=== PATIENT | male | born 1940 ===

== ENCOUNTER 2018-12-09 15:38 | Inpatient (IN) | payer OTHER, MEDICARE ==
[~2018-12-09] VITALS: Ht 177.8 cm; Wt 94.7 kg
[~2018-12-09 15:38] MED LIST: ACET325 PO; ASPI81CH PO; ASPI81EC PO; BENTYL10 MG PO; CHOL10002 PO; CVS DAILY MULT1 EAC1 PO; DIPH50 PO; DOCU100 PO; ENOX40I SQ; FINA5 PO; GABA400 PO; GLUCHON PO; GLUCOSAMINE CH1 EAC3 PO; HYDACE10B PO; HYDACE7.5 PO; HYDMOR4 PO; LORA.5 PO; MULVITMIND PO; NAPR220 PO; NIAC500 PO; OMEG1CAP30 PO; OMEP20ER PO; OXYB5 PO; OXYGEN; PRAZ1 PO; PRAZ2 PO; RANI150 PO; RESTFUL LEGS PO; SERT100 PO; Salmon Oil 1,01 EACH PO; TAMS.4ER PO; TRAM50 PO; TRAZ50 PO
[2018-12-09 15:59] LABS: BASOPHILS ABSOLUTE AUTO 0.04 K/mm3 (0.00-0.23); BASOPHILS PERCENT AUTO 1 % (0-2); EOSINOPHILS ABSOLUTE AUTO 0.06 K/mm3 (0.00-0.68); EOSINOPHILS PERCENT AUTO 1 % (0-6); Hematocrit 45.7 % (37.0-53.0); Hemoglobin 15.3 g/dL (13.5-17.5); IMMATURE GRAN ABSOLUTE AUTO 0.01 K/mm3 (0.00-0.10); IMMATURE GRAN PERCENT AUTO 0 % (0-1); LYMPHOCYTES ABSOLUTE AUTO 1.98 K/mm3 (0.84-5.20); LYMPHOCYTES PERCENT AUTO 29 % (21-46); MONOCYTES ABSOLUTE AUTO 0.56 K/mm3 (0.16-1.47); MONOCYTES PERCENT AUTO 8 % (4-13); Mean Corpuscular HGB 31.2 pg (26.0-34.0); Mean Corpuscular HGB Conc 33.5 g/dL (31.5-36.5); Mean Corpuscular Volume 93 fL (80-100); Mean Platelet Volume 10.7 fL (9.1-12.4); NEUTROPHILS ABSOLUTE AUTO 4.29 K/mm3 (1.96-9.15); NEUTROPHILS PERCENT AUTO 62 % (41-73); Platelet Count 144 K/mm3 (150-400); RDW Coefficient Variation 13.5 % (11.7-14.2); RDW Standard Deviation 46.3 fL (35.1-46.3); White Blood Cell Count 6.94 K/mm3 (4.00-11.30)
[2018-12-09 16:27] LABS: Alanine Aminotransfer (ALT/SGP 18 U/L (12-78); Albumin, Blood 3.7 g/dL (3.4-5.0); Albumin/Globulin Ratio 1.2 (0.8-1.8); Alk Phos 68 U/L (50-136); Anion Gap 7 mmol/L (6-16); Aspartate Aminotrans (AST/SGOT 12 U/L (12-37); Blood Urea Nitrogen 21 mg/dL (8-24); Bun/Creatinine Ratio 21.5 (12.0-20.0); CO2, Blood 25 mmol/L (21-32); Calcium, Blood 9.3 mg/dL (8.5-10.1); Chloride, Blood 109 mmol/L (98-108); Creatinine, Blood 0.98 mg/dL (0.60-1.20); Globulin, Blood 3.1 g/dL (2.2-4.0); Glomerular Filtration Rate >60 (60-); Glucose, Blood 102 mg/dL (70-99); Potassium, Blood 4.2 mmol/L (3.5-5.5); Sodium, Blood 141 mmol/L (136-145); Total Protein, Blood 6.8 g/dL (6.4-8.2); Troponin I <0.015 ng/mL (0.000-0.040)
[2018-12-09 18:28] LABS: International Normalized Ratio 1.03; Prothrombin Time Results 10.9 Sec (9.7-11.5)
[2018-12-09 19:54] LABS: Appearance, Urine Clear (Clear); Bilirubin, Urine Neg (Neg); Blood, Urine 4+ (Neg); Color, Urine Yellow (P-Yellow); Glucose Qualitative, Urine Neg (Neg); Ketones, Urine Neg (Neg); Leukocyte Esterase, Urine 1+ (Neg); Nitrite, Urine Neg (Neg); Protein, Urine 2+ (Neg); Urobilinogen, Urine NORM (Normal)
[2018-12-09 20:02] LABS: Amorphous Light ({null, 0-Heavy}); Bacteria Mod /hpf; Red Blood Cells, Urine 0-2 /hpf (0-2); Squamous Epithelial Cells Rare /hpf (Few)
[2018-12-09] MEDS ORDERED: CEPH500 PO (20:57)
--- NOTE | 2018-12-10 03:56 | NUR ---
SHIFT SUMMARY PT ARRIVED AND WAS ORIENTED TO THE FLOOR. PT CONTINUES TO COMPLAIN OF HEADACHE AND RLS. MEDICATION WAS GIVEN TO PT FOR BOTH TO GOOD EFFECT. PT HAD VSS, BUT STILL COMPLAINS OF BLURRY VISION. THIS NURSE GOT IN REPORT THAT THE PT IS UNABLE TO GET OUT OF BED. NO ATTEMPTS WERE MADE TO AMBULATE PT. NO OTHER COMPLAINTS AT THIS TIME. WILL CONTINUE TO MONITOR.
[2018-12-10 05:29] LABS: Hematocrit 41.5 % (37.0-53.0); Hemoglobin 14.2 g/dL (13.5-17.5); Mean Corpuscular HGB 30.8 pg (26.0-34.0); Mean Corpuscular HGB Conc 34.2 g/dL (31.5-36.5); Mean Platelet Volume 10.9 fL (9.1-12.4); Platelet Count 131 K/mm3 (150-400); RDW Coefficient Variation 13.5 % (11.7-14.2); RDW Standard Deviation 44.4 fL (35.1-46.3); Red Blood Cell Count 4.61 M/mm3 (4.30-5.90)
[2018-12-10 05:30] LABS: Mean Corpuscular Volume 90 fL (80-100)
[2018-12-10 05:51] LABS: Alanine Aminotransfer (ALT/SGP 14 U/L (12-78); Albumin, Blood 3.2 g/dL (3.4-5.0); Albumin/Globulin Ratio 1.1 (0.8-1.8); Alk Phos 61 U/L (50-136); Anion Gap 6 mmol/L (6-16); Aspartate Aminotrans (AST/SGOT 15 U/L (12-37); Blood Urea Nitrogen 17 mg/dL (8-24); Bun/Creatinine Ratio 17.9 (12.0-20.0); CO2, Blood 23 mmol/L (21-32); Calcium, Blood 8.9 mg/dL (8.5-10.1); Chloride, Blood 112 mmol/L (98-108); Creatinine, Blood 0.95 mg/dL (0.60-1.20); Globulin, Blood 2.8 g/dL (2.2-4.0); Glomerular Filtration Rate >60 (60-); Glucose, Blood 97 mg/dL (70-99); Potassium, Blood 3.7 mmol/L (3.5-5.5); Sodium, Blood 141 mmol/L (136-145)
[2018-12-10 08:21] LABS: U Amphetamine Screen Not Detected; U Barbituate Screen Not Detected; U Benzodiazapine Screen DETECTED; U Buprenorphine Screen Not Detected; U Cannabinoids Screen Not Detected; U Cocaine Screen Not Detected; U Methadone Screen Not Detected; U Methamphetamine Screen Not Detected; U Opiates Screen Not Detected; U Oxycodone Screen Not Detected; U Phencyclidine Screen Not Detected; U Propoxyphene Screen Not Detected
[2018-12-10 10:14] LABS: BASOPHILS ABSOLUTE AUTO 0.04 K/mm3 (0.00-0.23); BASOPHILS PERCENT AUTO 1 % (0-2); EOSINOPHILS ABSOLUTE AUTO 0.25 K/mm3 (0.00-0.68); EOSINOPHILS PERCENT AUTO 4 % (0-6); Hemoglobin 15.6 g/dL (13.5-17.5); IMMATURE GRAN ABSOLUTE AUTO 0.01 K/mm3 (0.00-0.10); IMMATURE GRAN PERCENT AUTO 0 % (0-1); LYMPHOCYTES ABSOLUTE AUTO 2.06 K/mm3 (0.84-5.20); LYMPHOCYTES PERCENT AUTO 36 % (21-46); MONOCYTES PERCENT AUTO 9 % (4-13); Mean Corpuscular HGB 30.7 pg (26.0-34.0); Mean Corpuscular HGB Conc 33.9 g/dL (31.5-36.5); Mean Corpuscular Volume 91 fL (80-100); Mean Platelet Volume 10.5 fL (9.1-12.4); NEUTROPHILS ABSOLUTE AUTO 2.95 K/mm3 (1.96-9.15); NEUTROPHILS PERCENT AUTO 51 % (41-73); Platelet Count 122 K/mm3 (150-400); RDW Coefficient Variation 13.6 % (11.7-14.2); RDW Standard Deviation 45.6 fL (35.1-46.3); Red Blood Cell Count 5.08 M/mm3 (4.30-5.90); White Blood Cell Count 5.81 K/mm3 (4.00-11.30)
--- NOTE | 2018-12-10 10:30 | NUR ---
ASSUMPTION OF CARE Pt to ICU 3 from medical floor. Ruben RN, Denis RN, and imaging transporter accompanied pt to room. Dr Kimble at bedside. States plan for emergent head CT and head MRI when pt calm. Pt wearing 2 LPM NC. SpO2 90% or greater. Call placed to pharmacy to request keppra. Keppra to be given before pt taken to CT. ASA suppoistory held until head bleed ruled out. Per med floor RN, pt may have hit head during fall. Pt does not follow commands. Rigid BUE and BUE. Intermittent spontaneous flexion, unclear if voluntary or involuntary. PERRL.
[2018-12-10 10:36] LABS: Anion Gap 5 mmol/L (6-16); Blood Urea Nitrogen 16 mg/dL (8-24); Bun/Creatinine Ratio 15.7 (12.0-20.0); CO2, Blood 26 mmol/L (21-32); Calcium, Blood 9.3 mg/dL (8.5-10.1); Chloride, Blood 109 mmol/L (98-108); Creatinine, Blood 1.02 mg/dL (0.60-1.20); Glomerular Filtration Rate >60 (60-); Glucose, Blood 95 mg/dL (70-99); Magnesium, Blood 2.1 mg/dL (1.6-2.4); Potassium, Blood 4.7 mmol/L (3.5-5.5); Prolactin 7.8 ng/mL (2.5-17.4); Sodium, Blood 140 mmol/L (136-145)
--- NOTE | 2018-12-10 10:43 | NUR ---
THIS AM UPON AM ASSESSMENT PT AWOKE TO VERBAL STIMULI WAS A/O TO PERSON, CITY AND YEAR BUT WAS UNSURE OF WHERE HE WAS AT OR WHY HE WAS HERE. PT DENIED ANY PAIN AT THIS TIME BUT DID REPORT SEEING DOUBLE. PT EXTREMETIES WERE EQUAL AND STRONG. AT APROX 0900 PHYSICAL THERAPY CAME IN TO EVALUATE PT, PER PHYSICAL THERAPIST PT BEGAN SITTING UP AT BEDSIDE AND GOT ONE LEG OVER THE EDGE OF THE BED AND BECAME UNRESPONSIVE. THERAPY AND RAIL CREW MEMBER WAS ABLE TO GET PT BACK INTO LYING POSITION ON BED. THERAPY CALLED ME AND I WENT INTO THE ROOM BUT WAS LYING ON HIS BACK STARING UP AT THE CEILING, PT WAS UNRESPONSIVE AND WOULD NOT BLINK HIS EYES OR SPEAK. RESP E/U AT THIS TIME. BP OF 162/77 PER SPECIAL TESTER NO EVENTS ON MONITOR. PUPILS DILATED AT THIS TIME WITH LEFT SLIGHTLY LARGER BUT BOTH REACTIVE. PT ABLE TO SQUEEZE WITH BOTH HANDS BUT NOT MOVING ARMS OR LEGS AT THIS TIME. DR LAL WAS CALLED AND AT BEDSIDE TO SEE PT. PER DR LAL AT THIS TIME GET A STAT MRI AND EEG. DR LAL CALLED DR HAZEL AT THIS TIME AND SPOKE WITH HIM. I ATTEMPTED TO CALL DAUGHTER AND SON WELL INDUSTRIAL SAFETY AND HEALTH SPECIALIST TO COMPLETE MRI SCREENING FORM. PER MRI THEY CANNOT COMPLETE MRI BASED ON H&P. WHILE ON THE PHONE WITH MRI PT BED ALARM WENT OFF AND I RAN INTO PT'S ROOM AND PT WAS ALREADY ON THE FLOOR ON HIS KNEES WITH HIS HEAD ON THE GROUND. PT WAS ONCE AGAIN UNRESPONSIVE. DR LAL AT BEDSIDE DURING THIS. BLOOD GLUCOSE OF 87. PT WAS LIFTED BACK INTO BED VIA LIFT. NO APPARENT INJURIES NOTED. PER DR LAL GIVE 0.4MG OF NARCAN IV WHICH WAS ADMINISTERED. PT UNRESPONSIVE FOR APROX 10MIN. PUPILS CAME BACK TO A 3 AND EQUAL AND PT ONCE AGAIN STARING AT THE CEILING AND NOT RESPONDING. BP OF 183/77, NO EVENTS ON MONITOR PER PCU. PRN HYDRALAZINE GIVEN PER DR LAL AT THIS TIME. AFTER NARCAN GIVEN PT BEGAN TO WAKE BACK UP AND TRYING TO CRAWL OUT OF BED. DR LAL GAVE ORDERS TO GIVE 2MG IV ATIVAN WHICH WAS ADMINISTERED. PT CONT TO BE AGRESSIVE AND VERY STRONG ATTEMPTING TO GET OUT OF BED. WHEN RELAXED PT NOTED TO BE MAKING MOVEMENT WITH HIS TONGUE, ONE EYE LOOKING FORWARD WHILE THE OTHER EYE DRIFTED OFF TO THE SIDE AND PT ARMS EXTENDED OUT. PER DR LAL AT THIS TIME TRANSFER TO PCU. SHE CALLED AND SPOKE WITH [facility]. STAT CT SCAN ALSO ORDERED, WHILE ATTEMPTING TO GET PT TO CT PT CONT TO BE AGRESSIVE AND NOT FOLLOWING COMMANDS. PER HALI WHO REMAINED AT BEDSIDE GIVE ADDITIONAL 2MG IV ATIVAN FOR A TOTAL OF 4MG. AND TAKE TO ICU FIRST TO GET STABLE PRIOR TO CT. PT TRANSFERED TO ICU 3, BEDISDE REPORT GIVEN TO RN'S. ATTEMPTED TO CALL SON AND DAUGHTER MULTIPLE TIMES FOR UPDATE WITH NO RESPONSE. PT BEGAN CALMING DOWN ONCE ARRIVED TO ICU.
--- NOTE | 2018-12-10 11:30 | NUR ---
UPDATE En route to CT, pt opened eyes and spoke with staff. Spoke in 1-2 word sentences for about one minute. Pt stated "hello". When asked how he was doing, pt stated "better". This RN asked him to state his last name. Pt stated "I'm Ba." No additional speech noted. While on CT table, pt had difficutly remaining still for the procedure. Pt moving head and raising arms straight up in air. Call placed to Dr Kimble. Orders given to administer 2 mg ativan. Upon returning to room, bindery library technical assistant in room setting up for procedure.
--- NOTE | 2018-12-10 12:02 | NUR ---
DR HAZEL Spoke to Jenelle, from Dr Hazel office. Calling to inquire about status of EEG and Head MRI. Notified that head CT has been done. Pt is currently receiving EEG. Head MRI to be done at 1400 per transporter.
--- NOTE | 2018-12-10 14:22 | NUR ---
DAUGHTER AT BEDSIDE EEG complete. Pt resting in bed, asleep. Pt to be taken to MRI at 1430.
--- NOTE | 2018-12-10 16:55 | NUR ---
NEUROLOGY CONSULTATION This RN placed call to Dr Vidal at 15[address] to [address], head MRI, and EEG results were available. Inquired about plan of care. Provider ordered neurology consultation. This RN placed call to Dr Garnica. Notified of consultation. Notified that results for head MRI and head CT were available. Discussed BP and current mentation. Pt occasionally follows directions and answers questions. Pt speaks 1-2 words at a time. Able to state his name and the names of his children. Cannot state correct location or year. Provider states he will be in to see pt around 1900 and 2100. Family updated. Family states plan to leave, but come back to speak with Dr Garnica.
--- NOTE | 2018-12-10 18:31 | NUR ---
SHIFT SUMMARY Pt opens eyes to verbal stimulus. PERRL. Pt occasionally tracks with eyes. Since arrival to unit, pt has not been able to state correct location or year. Pt follows directions when asked to open eye or video game repair technician, but has not followed any additional commands. Pt has not attempted to get OOB. Bed alarm on. Fall gown on patient. NS infusing at 75 mL per hour.
--- NOTE | 2018-12-10 20:32 | NUR ---
INITIAL ASSESSMENT PATIENT RESTING QUIETLY IN BED UPON ENTERING ROOM. PATIENT RESPONDS TO VERBAL STIMULI. PATIENT UNABLE TO TRACK, NYSTAGMUS NOTED. PUPILS 4+ AND REACT BRISKLY TO LIGHT. PATIENT ORIENTED TO SELF, FAMILY, TOWN AND FOLLOWING SOME SIMPLE COMMANDS. PATIENT CONTINUES TO THINK HE IS AT HOME DESPITE BEING REMINDED NUMEROUS TIMES THAT HE IS IN THE HOSPITAL. SPEECH GARBLED. PATIENT WEAK BUT ABLE TO MOVE ALL EXTREMITIES. PATIENT AFEBRILE. PATIENT DENIES PAIN. PATIENT SATTING 90% AND GREATER ON RA. LUNGS CLEAR/ DIMINISHED T/O. SHALLOW BREATHS NOTED. PATIENT IN SB, HR IN THE 50S. SBP 160S TO 170S. PRN HYDRALAZINE AVAILABLE TO BE GIVEN AT SBP OVER 180. PULSES STRONG. PATIENT INCONTINENT. ATTENDS IN PLACE. PATIENT VOIDING YELLOW COLORED URINE. SKIN APPEARS WNL. IVS FLUSHED. NS INFUSING AT 75 MLS/ HOUR. BED ALARM ON, CALL LIGHT IN REACH, BED LOW. DAUGHTER AT BEDSIDE. WILL CONTINUE TO MONITOR PATIENT FREQUENTLY THROUGHOUT SHIFT.
--- NOTE | 2018-12-10 21:40 | NUR ---
DR. HAZEL TO PATIENT'S ROOM AT 2114. PATIENT'S SON AND DAUGHER ALSO IN ROOM. DR. HAZEL UPDATED ON PATIENT. INFORMED THAT PATIENT HAD LEUKOCYTES AND BACTERIA IN URINE, INFORMED THAT SBP 160S T0 170S, THAT PATIENT TAKES ZOLOFT AND VITAMINS AT HOME, THAT PATIENT IS ON SCHEDULED IV KEPPRA.
--- NOTE | 2018-12-10 21:45 | NUR ---
SPOKE TO A-GEOGRAPHICAL HISTORIAN EDISON GUTIERREZ ABOUT PATIENT'S SBP 160S TO 170S AND INFORMED THAT WE HAVE PRN HYDRALAZINE FOR SBP OVER 180. MATT INFORMED THAT DR. HAZEL HAS BEEN IN TO SEE PATIENT AND IS SUSPICIOUS FOR HYPERTENSIVE ENCEPHALOPATHY. ORDER TO CHANGE PRN HYDRALAZINE ORDER TO KEEP SBP UNDER 160.
--- NOTE | 2018-12-11 00:15 | NUR ---
PATIENT SLEEPING SOUNDLY UPON ENTERING ROOM. PATIENT RESPONDS TO VERBAL STIMULI. NYSTAGMUS DECREASED SINCE LAST ASSESSMENT. PATIENT DENIES PAIN. PATIENT AFEBRILE. PATIENT REMAINS SATTING 90% AND GREATER ON RA. PATIENT IN SB TO SR, HR 50S TO 60S. SBP IN THE 150S. NO OTHER ACUTE CHANGES TO NOTE ON AT THIS TIME. WILL CONTINUE TO MONITOR.
--- NOTE | 2018-12-11 03:58 | NUR ---
PATIENT SLEEPING SOUNDLY UPON ENTERING ROOM. PATIENT WAKES TO VERBAL STIMULI. PATIENT MORE ALERT AND ORIENTED THAN AT PREVIOUS ASSESSMENT. PATIENT ALERT AND ORIENTED TO SELF, FAMILY, FOLLOWING DIRECTIONS, TOWN AND THAT HE IS IN THE HOSPITAL. PATIENT DOES NOT KNOW WHY HE IS IN THE HOSPITAL. PATIENT REMINDED. PATIENT NOW TRACKING WITH EYES. PATIENT REMAINS SATTING 90% AND GREATER ON RA. PATIENT IN SB TO SR, HR 50S TO 60S. SBP IN THE 130S. NO OTHER ACUTE CHANGES TO NOTE ON AT THIS TIME. WILL CONTINUE TO MONITOR.
--- NOTE | 2018-12-11 06:42 | NUR ---
SHIFT SUMMARY PATIENT SLEPT MOST OF THE SHIFT. PATIENT NEURO SEEMED TO IMPROVE SLIGHTLY PATIENT NOW AWARE THAT HE IS IN HOSPITAL, NYSTAGMUS HAS DECREASED AND PATIENT IS NOW TRACKING WITH EYES. PATIENT REMAINED CALM AND COOPERATIVE. PATIENT HAD NO COMPLAINTS OF PAIN T/O SHIFT. PATIENT AFEBRILE. PATIENT REMAINED SATTING WELL ON RA. PATIENT REMAINS WEAK BUT ABLE TO MOVE ALL EXTREMITIES. PATIENT REMAINED IN SB TO SR, HR 50S TO 60S. PATIENT HYPERTENSIVE AT BEGINNING OF SHIFT; PATIENT HAS BEEN STABLE SINCE. PATIENT INCONTINENT OF URINE ON AND OFF. SECOND HALF OF SHIFT PATIENT STARTED ASKING FOR URINAL. BLADDER SCAN OF 165 MLS AFTER AM VOID. NO BM THIS SHIFT. KNOT REMAINS TO R SIDE OF HEAD. NS INFUSING AT 75 MLS/ HOUR. DR. HAZEL HERE LAST NIGHT TO SEE PATIENT AND SPEAK WITH PATIENT'S SON AND DAUGHTER. PATIENT HAS NO COMPLAINTS AT THIS TIME. BED LOW, CALL LIGHT IN REACH. REPORT WILL BE GIVEN TO ONCOMING DAY SHIFT GELACIO SHORTLY.
--- NOTE | 2018-12-11 11:06 | NUR ---
0730: Care assumed, pt sleeping, VSS, NS infusing at 75ml/hr. 0830: Pt awake and alert, assessment completed. Pt oriented to self and family, is aware that he lives with daughter, is confused as to place/time/situation but appropriate. OT at bedside for eval. 0905: During OT eval, pt became increasingly drowsy and weak, stopped responding verbally but would track movements and follow some commands. BP elevated, hydralazine administered. Pt resting in bed with eyes closed at this time. 1045: Second dose of hydralazine administered per Dr. Kimble. Pt sat up suddenly in bed, was attempting to get up. This RN attempted to reorient patient without success. Pt awake, making moaning noises, appears to be hallucinating, does not follow commands, is becoming angry and agitated, hr 130's. Pt placed in ajay and 4 point soft restraints after grabbing this RN's neck, and then attempting to choke himself. Ativan administered without results, pt began crying and calling out for his mother, Dr. Kimble notified, haldol administered per orders. 1115: Pt lying in bed with eyes closed, is calm and quiet, no crying at this time. VSS.
--- NOTE | 2018-12-11 14:32 | NUR ---
PT RESTING QUIETLY IN BED, IS DROWSY BUT CAN ANSWER QUESTIONS APPROPRIATELY. RESTRAINTS RELEASED AT THIS TIME. ATTENDS CHANGED, PT REPOSITIONED. PT C/O HEADACHE, TOLERATING SIPS OF WATER. TYLENOL CRUSHED AND ADMINISTERED IN PUDDING WITHOUT DIFFICULTY. DAUGHTER AT BEDSIDE.
--- NOTE | 2018-12-11 15:04 | NUR ---
PT MEDICATED PER ORDERS FOR SBP >160 PER ORDERS, IS CALM AND COOPERATIVE AT THIS TIME, POLITE AND PLEASANT, NO BIZZARE BEHAVIOR OR HALLUCINATIONS NOTED.
--- NOTE | 2018-12-11 16:58 | NUR ---
PT REMAINS CALM AND COOPERATIVE, AWAKE ON AND OFF, NO ADDITIONAL HALLUCINATIONS OR INAPPROPRIATE BEHAVIORS. VSS, PT TOLERATING HYDRALAZINE WELL, ATE PUDDING WITH HELP WITHOUT COUGHING OR CHOKING, REPOSITIONING SELF IN BED, DENIES NEEDS OR C/O.
--- NOTE | 2018-12-11 18:57 | NUR ---
1830: PT AWAKE, ALERT AND APPROPRIATE, COOPERATIVE AND PLEASANT. PT STATES HE FEELS HUNGRY AND WOULD LIKE TO EAT. DINNER GIVEN, PT SITTING UP IN BED FEEDING HIMSELF APPROPRIATELY WITHOUT DIFFICULTY, NO CHOKING OR COUGHING NOTED. NO INAPPROPRIATE BEHAVIORS AFTER HALDOL ADMINISTERED X1 EARLIER TODAY, MENTATION HAS CLEARED CONSIDERABLY THIS EVENING, NO APPARENT SEIZURE ACTIVITY THIS SHIFT. VSS AT THIS TIME, PT VISITING WITH DAUGHTER WHO IS AT BEDSIDE. 1899: PT USED URINAL APPROPRIATELY WITHOUT ASSISTANCE, IS NOW FINISHING DINNER AND CONTINUES TO VISIT WITH DAUGHTER. SPEECH IS A LITTLE SLOWED, BUT ANSWERS ARE APPROPRIATE. VSS, REPORT TO ONCOMING SHIFT.
--- NOTE | 2018-12-12 05:44 | NUR ---
SHIFT SUMMARY: PATIENT PLEASENT AND COOPERATIVE THROUGHOUT THE NIGHT. PATIENT APPEARS TO BE ALERT AND ORIENTED LAST NIGHT. PATIENT HAD FAMILY IN ROOM VISITING AT THE BEGINNING OF THE SHIFT. PATIENT APPEARED TO SLEEP WELL THROUGHOUT THE NIGHT AND APPEARED TO BE ABLE TO TURN SELF IN BED WELL, ASSISTANCE PROVIDED NEEDED. IV FLUIDS RUNNING PER ORDERS. PATIENT CURRENTLY APPEARS TO BE ASLEEP. VITAL SIGNS CHARTED. WILL CONTINUE TO MONITOR PATIENT AND REPORT TO ONCOMING RN.
--- NOTE | 2018-12-12 10:22 | NUR ---
0800: CARE ASSUMED, ASSESSMENT COMPLETED. PT RESTING IN BED WITH NO C/O, IS ALERT, ORIENTED TO SELF AND PLACE, CALM, COOPERATIVE, AND PLEASANT. VSS, PT DENIES PAIN OR C/O. 0900: PT SITTING UP IN BED EATING BREAKFAST, TOLERATED PO MEDICATIONS WITHOUT DIFFICULTY, EX SISTER IN LAW IN TO VISIT PT. 929: PT CRYING, VISITOR REPORTS HE ASKED WHERE HIS EX IS, VISITOR REMINDED PT THAT SHE 4 YEARS AGO, PT INCONSOLEABLE, ATTEMPTING TO GET OOB TO "SEE CECIL," UNABLE TO REORIENT. HALDOL ADMINISTERED PER ORDERS. 1015: PT HAS CALMED SLIGHTLY BUT CONTINUES TO ATTEMPT TO GET OOB, HAS BEEN MEDICATED X2 FOR HTN. NICHOLAS VEST APPLIED AT THIS TIME, WILL CONTINUE TO MONITOR.
--- NOTE | 2018-12-12 13:27 | NUR ---
1115: PT HAS CALMED, REMAINS CONFUSED BUT IS RESTING QUIETLY. ATIVAN ADMINISTERED AT THIS TIME FOR ADJUNCT TO HYDRALAZINE FOR HTN. 1230: ATTENDS AND GOWN CHANGED WHILE PT SITTING AT SIDE OF BED, PT CALM AND COOPERATIVE AT THIS TIME, CONFUSED, NOT FOLLOWING DIRECTIONS WELL. PT ASSISTED TO WC TO SIT UP FOR LUNCH, NICHOLAS REMAINS ON, LEFT SIDED WEAKNESS NOTED. 1330: PT TOLERATED LUNCH WELL, ATE ON HIS OWN. REMAINS CONFUSED BUT COOPERATIVE AND CALM, VSS. PT UP IN WC.
--- NOTE | 2018-12-12 14:51 | NUR ---
DR. LAL AWARE OF PT'S LEFT SIDED WEAKNESS, NO NEW ORDERS REGARDING WEAKNESS AT THIS TIME. PSYCH CONSULT ORDERED PER DR. LAL. PT SITTING UP IN WC TALKING WITH DAUGHTER, VSS.
--- NOTE | 2018-12-12 15:46 | NUR ---
BEDSIDE BATH COMPLETED, PT TOLERATED WELL. P.T. AT BEDSIDE TO WORK WITH PT, ASSISTED TO TRANSFER PT FROM WC TO BED WITH WALKER, GAIT BELT, AND 2 PERSON ASSIST. REPORT GIVEN TO TREVA ORO. PT MEDICATED WITH HYDRALAZINE FOR SBP 176. PT TO ROOM PCU 10 WITH BELONGINGS AND MEDICATION.
--- NOTE | 2018-12-12 16:08 | NUR ---
PT ARRIVAL. PT ARRIVED TO UNIT IN [facility], PT IS COMPLIANT AND COOPERATIVE WITH CARE. PT'S DAUGHTER IS AT THE BEDSIDE. WILL CONTINUE TO MONITOR.
--- NOTE | 2018-12-12 17:44 | NUR ---
SHIFT SUMMARY. NO ACUTE CHANGES NOTED SINCE PT WAS TRANSFERED TO THIS UNIT. PT'S VS STABLE, PT DENIES ANY CHEST PAIN/PRESSURE, N/V OR SOB. TELEPSCH CONSULT WAS PLACED PER MANAGER COMPLETIONS AND IS SCHEDULED FOR 0100. PT HAD INCONT EPISODE OF URINE. PT IS C/O "NECK PAIN THAT GOES AROUND TO MY EYES." PT'S BP AT THIS TIME IS 158/75. PER THE PT'S DAUGHTER THE PT'S ARMS ARE "VERY STIFF" HOWEVER THE PT IS ABLE TO MOVE THEM FREELY AT THIS TIME. PT IS VERY SLEEPY AT THIS TIME. CALL LIGHT IN REACH, BED IS LOCKED AND LOW WILL CONTINUE TO MONITOR UNTIL REPORT IS GIVEN TO ONCOMING RN.
--- NOTE | 2018-12-12 17:51 | NUR ---
PT UPDATE... PT HAS NOT BEEN IN RESTRAINTS SINCE TRANSFER TO THIS UNIT.
[2018-12-13 04:20] LABS: BASOPHILS ABSOLUTE AUTO 0.03 K/mm3 (0.00-0.23); BASOPHILS PERCENT AUTO 1 % (0-2); EOSINOPHILS ABSOLUTE AUTO 0.25 K/mm3 (0.00-0.68); EOSINOPHILS PERCENT AUTO 5 % (0-6); Hematocrit 39.8 % (37.0-53.0); Hemoglobin 13.4 g/dL (13.5-17.5); IMMATURE GRAN PERCENT AUTO 0 % (0-1); LYMPHOCYTES ABSOLUTE AUTO 1.54 K/mm3 (0.84-5.20); LYMPHOCYTES PERCENT AUTO 29 % (21-46); MONOCYTES ABSOLUTE AUTO 0.62 K/mm3 (0.16-1.47); MONOCYTES PERCENT AUTO 12 % (4-13); Mean Corpuscular HGB 30.7 pg (26.0-34.0); Mean Corpuscular HGB Conc 33.7 g/dL (31.5-36.5); Mean Corpuscular Volume 91 fL (80-100); Mean Platelet Volume 10.8 fL (9.1-12.4); NEUTROPHILS ABSOLUTE AUTO 2.87 K/mm3 (1.96-9.15); NEUTROPHILS PERCENT AUTO 54 % (41-73); Platelet Count 122 K/mm3 (150-400); RDW Coefficient Variation 13.7 % (11.7-14.2); RDW Standard Deviation 46.6 fL (35.1-46.3); Red Blood Cell Count 4.36 M/mm3 (4.30-5.90); White Blood Cell Count 5.31 K/mm3 (4.00-11.30)
[2018-12-13 04:33] LABS: Anion Gap 8 mmol/L (6-16); Blood Urea Nitrogen 13 mg/dL (8-24); Bun/Creatinine Ratio 13.1 (12.0-20.0); CO2, Blood 23 mmol/L (21-32); Calcium, Blood 8.7 mg/dL (8.5-10.1); Chloride, Blood 114 mmol/L (98-108); Creatinine, Blood 0.99 mg/dL (0.60-1.20); Glomerular Filtration Rate >60 (60-); Glucose, Blood 107 mg/dL (70-99); Magnesium, Blood 1.8 mg/dL (1.6-2.4); Potassium, Blood 3.9 mmol/L (3.5-5.5); Sodium, Blood 145 mmol/L (136-145)
--- NOTE | 2018-12-13 06:54 | NUR ---
END OF SHIFT SUMMARY PT ALERT AND ORIEMNTED, SLOW TO RESPOND BUT APPROPRIATE. ORIENTED TO ROOM. STATES CORRECT BIRTHDAY, APPEARS TO HAVE CONCRETE THOUGHT PROCESS. VSS THIS SHIFT. BP HAS REMAINED BELOW 150'S POST INITIAL IV APRESOLINE ADMINISTRATION. PT HAS SLEPT FOR MAJORITY OF NIGHT. HAS BEEN COOPERATVE AND ALERT T/O. HAS NOT SHOWN ANY SIGNS OF HIS "EPISODES" OF CONFUSION / AGITATION. TELEPSYCHE UNEVENTFUL DOCTOR COULD NOT ACCESS PATIENTS CHARTS, WILL GET BACK TO US WITH MORE INFORMATION. PT HAS HAD INCONTINENT VOIDS. BLADDER SCAN SHOWED 340MLS, PT VOIDED 250MLS RIGHT AFTERWARDS, THIS WAS WHEN PATIENT WAS LYING FLAT. WILL CONTINUE TO MONITOR PT.
--- NOTE | 2018-12-13 07:33 | NUR ---
ASSUMED CARE: PT RESTING QUIETLY. YELLOW GOWN NOTED. STATES HIS HEARING AID BATTERIES ARE . CALL TO PT'S DAUGHTER TO ASK HER TO BRING MORE. NO FURTHER NEEDS OR DISTRESS NOTED AT THIS TIME.
--- NOTE | 2018-12-13 17:23 | NUR ---
SHIFT SUMMARY: PT ATTEMPTED TO GET OUT OF BED ON HIS OWN ONCE. HE WAS PLEASANT AND REDIRECTABLE. GOT HIM INTO A CHAIR WITH ONE ASSIST WITH WALKER. ALARMS AND YELLOW GOWN IN PLACE FOR SAFETY. FAMILY AT BEDSIDE AT THIS TIME. NO FURTHER NEEDS OR CONCERNS NOTED.
--- NOTE | 2018-12-14 04:39 | NUR ---
END OF SHIFT SUMAMRY PT AXO SPEAKING APPROPRIATELY WITH STAFF. HAS BEEN VERY COOPERATIVE WITH STAFF AND PLEASANT. PT HAS NOT HAD ANY APPARENT MOMENTS OF CONFUSION, AGITATION, OR AGGRESSION. PT HAS NOT APPEARED TO HAVE HAD ONE OF HIS "EPISODES" WITH IRREGULAR FLEXION OF EXTREMITIES AND CONFUSION. VSS, HAS REQUIRED PRN APRESOLINE. PT HAS BEEN RESTING FOR MOST OF NIGHT. UNLABORED AND EQUAL BREATHING / CHEST RISE. PT HAS NOT VOICED ANY CONCERNS TO THIS NURSE REGARDING PAIN OR DISCOMFORT. HAS BEEN CONTINENT OF VOIDS THIS SHIFT AND HAS BEEN USING URINAL. CALL LIGHT WITHIN REACH, WILL CONTINUE TO MONITOR PT UNTIL SHIFT CHANGE.
--- NOTE | 2018-12-14 05:53 | NUR ---
0520 PT APPEARS TO BE HAVING "EPISODE" DESCRIBED BY PT FAMILY. BUT, THIS PRESENTS WITHOUT ABNORMAL EXTREMITY OF FLEXION. WHEN THIS NURSE WENT INTO ROOM TO OBTAIN VITALS, PT NOT RESPONDING VERBALLY. FIXED GAZE. VITALS OBTAINED. STABLE, BUT BP RAISED. IV HYDRALZINE GIVEN PER EMAR. PT IS ABLE TO SLIGHTLY SQUEEZE HANDS WHEN VERBALLY PROMPTED TO. SPO2 MAINTAINING >94% RA. IV ATIVAN GIVEN ORDERED FPR SEIZURES IN EMAR. THIS APPEARS TO BE AN ABSENCE SEIZURE COVERED IN PROVIDER NOTES. THIS HAS ALL BEEN DISCUSSED WITH CHARGE NURSE. IF PATIENT STATE WORSENS, WILL CONTACT PROVIDER. THIS IS NOT A NEW CONDITION, WE WILL CONTINUE TO MONITOR.
--- NOTE | 2018-12-14 07:30 | NUR ---
ASSUMED CARE PT POST ICTAL. SEIZURE LASTING 622 TO 704. ICU NURSE IN THE ROOM RECORDING FIRST BEATER. SEE FIRST BEATER NOTES. VITAL SIGNS STABLE AT THIS TIME. CEREBYX INFUSING PER ORDERS. WILL CONTINUE TO MONITOR CLOSELY
--- NOTE | 2018-12-14 07:54 | NUR ---
OPERATIONS FORESTER POST 519 NOTE, PATIENT WAS RESTING. THIS NURSE WALKED IN TO ROOM AND PATIENT NOTED TO BE TRYING TO GET OUT OF BED. PT NOT RESPONDING VERBALLY, SAME BLANK STARE NOTED. PT LAID BACK DOWN IN BED. 622, PT BEGINS TO DISPLAY TONIC CLONIC MOVEMENTS. HANDS AND UPPER BODY SHAKING BUT LEGS NOTED TO BE EXTENDED. CHARGE NURSE CALLED TO ROOM, 1MG IV ATIVAN GIVEN. NO EFFECT. SEIZURE LIKE ACTIVITY CONTINUES, OPERATIONS FORESTER CALLED. ICU NURSE TO ROOM. BP NOTE TO HAVE RISEN TO [address] HAZEL HAD MENTIONED EARLIER IN THE PATIENTS CARE THAT HE BELIEVED THESE EVENTS WERE DUE TO HTN. 5MG LABETOLOL GIVEN BY ICU NURSE. SEIZURE LIKE ACTIVITY CONTINUES. PT CONTINUED TO MAINTAIN SP02<93% RA. NC 2L PLACED PROPHYLACTICALLY. INTERESTINGLY, PT BATS HANDS AWAY. WHEN PT'S CHEST RUBBED, HE LOOKED AT NURSES. DR LEAL ON PHONE, ORDERS PLACED. IV KEPPRA INFUSED @0643. ACTIVITY CONTINUES. 704 2MG IV ATIVAN GIVEN BY CHARGE NURSE AKUA. ACTIVITY SLOWLY FADES AWAY. THIS EVENT LASTED FROM 622 TO 704. CEREBYX STARTED @0733, DR AWARE OF HIGH DOSAGE RATE. PT IS NOW CURRENTLY RESTING. BP HAS COME DOEN TO [address] LAL HAS BEEN IN ROOM NOW AND UPDATED. DURING EVENT, THIS RN, AKUA MCCORMICK, KATIE DELUNA, RESPIRATORY CARE, AND OTHER PCU NURSES IN ROOM T/O THIS EVENT. FAMILY UPDATED ON THIS EVENT. WILL COME TO SEE PT WHEN AVAILABLE. ONCOMING NURSE PRESENT IN ROOM DURING MUCH OF THIS EVENT. NURSE GIVEN REPORT. STILL MAINTAINING SPO2 >93%.
--- NOTE | 2018-12-14 18:36 | NUR ---
SHIFT SUMMARY PT OPENS EYES WITH VERBAL STIMULI. PT INTERMITTENTLY ANSWERES QUESTIONS IN SHORT SENTENCES OR JUST YES OR NO. VITAL SIGNS STABLE. BP ELEVATED THIS AFTERNOON THAT WAS IMPROVED WITH MEDICATION ADMINISTRATION. HR HAS BEEN SINUS BENJAMIN. DAUGHTER AT BEDSIDE MOST OF SHIFT. WILL CONTINUE TO MONITOR AND REPORT TO ONCOMING RN.
--- NOTE | 2018-12-15 05:26 | NUR ---
SHIFT SUMMARY PT DROWSY, UNABLE TO KEEP EYES OPEN UPON CARE ASSUMPTION, ANSWERING SOME Q'S ONLY. PT MORE ALERT FURTHER INTO SHIFT, ORIENTED TO SELF AND FAMILY ONLY. PT DENIES ORIENTATION TO TIME, LOCATION, AND EVENT, PT REORIENTED TO SUCH THINGS. NO SEIZURELIKE ACTIVITY THIS SHIFT. PT PLEASANT AND COOPERATIVE. LUNG SOUNDS CLEAR, SPO2 > 92% ON RA. MONITOR SHOWS SB/NSR, HR 50-75. BP MEDICATED PER EMAR X1 THIS SHIFT. Q2H REPOSITIONING BY 2 STAFF MEMBERS W/ MODERATE ASSIST REQUIRED UPON CARE ASSUMPION NOW REQUIRING ONLY 1 PERSON ASSIST PT IS MORE ALERT AND ABLE TO HELP REPOSTION. PT INCONTINENT, WEARING ATTENDS, ONE EPISODE OF CONTINENCE W/ PT REQUESTING/ASSISTED W/ URINAL. BED ALARM REMAINS ON. SIDE RAILS UP W/ SEIZURE PADS X2. WILL CONTINUE TO MONITOR AND PROVIDE CARE UNTIL REPORT OFF TO DAY SHIFT RN.
--- NOTE | 2018-12-15 16:18 | NUR ---
SHIFT SUMMARY PT ALTERNATES BETWEEN A&OX2 TO SELF AND FAMILY TO EXTREMELY SOMNOLENT. HTN TX'D WITH HYDRALAZINE X1, IVF @ 75 MLS/HR, IV KEPPRA PER EMAR. TX'D 1X FOR SEIZURE-LIKE/PTSD ACTIVITY WITH 1ML ATIVAN. BEDREST W/BED ALARM, PT DOES TRY TO GET UP AT TIMES. TELE NSR @ 62. INCONTINENT/ATTENDS ON. PT ASSISTS WITH REPOSITIONING AND ATTENDS CHANGES. MARTIN PO, REQ MEAL ASSIST AND ENCOURAGEMEMT. ORCHARD PRUNER VISITED WITH PT TODAY AND PT REP TO DAUGHTER SINGH HE WOULD LIKE TO VISIT WITH HER AGAIN. DAUGHTER AT BEDSIDE. WCTM & TX PER EMAR UNTIL REPORT GIVEN TO ONCOMING VERONIKA TILLEY.
--- NOTE | 2018-12-15 19:01 | NUR ---
Asked by nursing to meet with Mr. Vaughan (Byron) as he appeared to be having flashbacks from the [place] war. I sat beside him, held his hand, and asked him to tell me about his memories. He was tearful throughout and would often shift from different times in his life. He spoke about the loved ones he had lost and expresed survivor's guilt. He appeared to appreciaite being heard and affirmed. He was much more calm after gentle staff genetic counselor and story facilitation. Per family request, I will continue to see Byron as schedule permits.
--- NOTE | 2018-12-15 21:27 | NUR ---
ASSUMED CARE ASSUMED CARE OF PT APPROX. 1900. PT A&O TO SELF, FAMILY AND PLACE. PT ABLE TO FOLLOW DIRECTIONS. ASSESSMENT COMPLETED. VITAL SIGNS STABLE. PT STATES HE IS FEELING ALOT BETTER THAN HE PREVIOUSLY WAS. PT FAMILY AT BEDSIDE AT START OF SHIFT. PT AWAKE AND ABLE TO HOLD CONVERSATION. PT ABLE TO ANSWER QUESTIONS APPROPRIATELY. PT ABLE TO AWAKE AND SWALLOW EVENING MEDICATIONS WITH WATER W/O ANY TROUBLES. PT CURRENTLY IN BED RESTING QUEITLY BUT REMAINS ARROUSABLE. BED IN LOW POSITION, BED ALARM ON, CALL LIGHT IN REACH AND PT DENIES ANY NEEDS AT THIS TIME. WILL CONINTUE TO MONITOR.
--- NOTE | 2018-12-16 05:45 | NUR ---
SHIFT SUMMARY PT PLEASANT AND COOPERATIVE. PT WAS ABLE TO REST FOR MOST OF SHIFT. WHEN PT AWOKEN BY STAFF PT MENTATION WAS NOTED TO HAVE NO CHANGES SINCE START OF SHIFT. PT RECOGNIZED STAFF AND REMAINED CALM ALL SHIFT. PT ATTEMPT TO USE URINAL INTERMITENTLY, OTHER TIMES PT WAS INCONTINENT OF URINE. PT ABLE TO MOVE HIMSELF AROUND IN BED. PT WOULD ROLL HIMSELF FROM SIDE TO SIDE WHILE SLEEPING. BED IN LOW POSITION, BED ALARM ON, CALL LIGHT IN REACH AND PT DENIES ANY NEEDS AT THIS TIME. WILL CONTINUE TO MONITOR UNTIL HANDOFF TO DAYSHIFT RN.
--- NOTE | 2018-12-16 07:19 | NUR ---
NURSING PCU DAYSHIFT: Assumed care of pt at approx 0700. Alert, oriented to self, location, year, following commands, unable to remember month/day. Very pleasant, cooperative w/care. General weakness noted though able to reposition independently. Skin is fairly intact w/no breakdown noted, scattered bruising on UE's. Tele in place, SB, no c/o CP/pressure, SBP 130's prior to a.m. meds, no noted edema. L/S cta t/o, O2 sat mid to upper 90's on RA, denies dyspnea, no noted cough. Abd SNT, BT+, attempts to use urinal for voiding though experiences incontinence. PIV x1, PG present in RUE w/NS infusing at 75cc/hr. Pt denies any current needs or questions regarding plan of care. Call light in reach, bed alarm set for safety purposes. Awaiting rounding from PMD, cont to monitor for any changes.
--- NOTE | 2018-12-16 10:59 | NUR ---
NURSING PCU TRANSFER SUMMARY: PMD at bedside this a.m. Pt became tearful with acknowledgement of SI. Pt reassured by PMD and plan discussed, new d/o received. SI precautions initiated, room assessment completed, nursing welfare supervisor notified, 1:1 placed in room d/t monitor room not available. Pt changed to medical status w/o tele, room assignment received, awaiting report to accepting RN. After discussion w/PMD at bedside, pt has been sitting in room w/hands interlaced over chest, not verbally responding to staff or allowing direction. Sitter remains at bedside, cont to monitor until transfer is completed.
--- NOTE | 2018-12-16 11:41 | NUR ---
REPORT RECEIVED FROM ELEAZAR BOWDEN. AWAITING PT ARRIVAL TO ROOM AT THIS TIME
--- NOTE | 2018-12-16 11:49 | NUR ---
NURSE CALLED ACADEMIC INTERN, VIDEO MONITORING TURNED ON AT THIS TIME.
--- NOTE | 2018-12-16 12:24 | NUR ---
PT ARRIVED TO ROOM, WAS TRANSFERRED TO BED VIA SLIDE WITH 4 STAFF PRESENT. POWERGLIDE TUBING BROKE DURING TRANSFER, PT BLEEDING, NURSE PULLED CATHETER AND APPLIED DRESSING. WHEN NURSE SPOKE TO PT, PT LOOKED INTO NURSE'S EYES AND DEMONSTRATED UNDERSTANDING THOUGH PT REFUSED TO MOVE. PT REFUSED TO HELP TRANSFER OR SQUEEZE NURSE'S FINGERS. NURSE DISCUSSED PT CONDITION WITH KEYLA HOOD, TREVA WHO SAT WITH PT TO ASSESS WITH PRIMARY NURSE. PT REFUSED TO ANSWER OR MOVE STILL. PT'S DAUGHTER SINGH CALLED AT 1228 AND STATES THAT THIS BEHAVIOR IS COMMON FOR HER FATHER WHEN HE HAS ANXIETY. SHE STATED THAT HER FATHER ENJOYS JAISON LEACH AND THIS MIGHT HELP HIM. JAISON NOTIFIED AT THIS TIME. DR GUTIERREZ IN ROOM AT 1238. UPDATED ON TRANSFER
--- NOTE | 2018-12-16 17:51 | NUR ---
SHIFT SUMMARY PT ARRIVED TO ROOM AT 1203 VIA GURNEY. SEE ARRIVAL AND ASSESSMENT NOTE. AT 1300 NURSE RECEIVED CALL FROM [employer] WHO STATED PT WAS ATTEMPTING OOB. PT REACHED FOR NURSE AND GRABBED HER HAND. NURSE PULLED HER HAND AWAY THEN PT REACHED TO GRAB NURSE'S FACE. NURSE MOVED AWAY TO AVOID GETTING HURT. NURSE CALLED IN INSTRUCTIONAL SERVICES SPECIALIST TO HELP KEEP PT FROM GETTING OOB. HIS FACE WAS SHAKING AND HE WAS NOT SPEAKING. NURSE CALLED IN WES ANAYA RN AND THEY CALLED SECURITY. NURSE ATTEMPTED TO CALL DR GARSIA AT 1303. DR GUTIERREZ WAS STILL ON THE UNIT AND GAVE VERBAL ORDERS FOR IM ZYPREXA PT WAS NOT ABLE TO SWALLOW ORAL FORM AT THAT TIME. ZYPREXA ADMINISTERED AT 1320. PT WAS SPEAKING ANOTHER LANGUAGE AT THAT TIME. PT CALMED AND FELL ASLEEP. AT 1420 NURSE REASSESSED PT WHO WAS COMPLAINING OF ABURTO. NURSE MEDICATED PT PER EMAR. PT AT THAT TIME WAS AXO TO SELF, YEAR AND WAS ANSWERING QUESTIONS APPROPRIATELY. PT DID NOT REMEMBER TRNASFERRING TO ROOM OR INCIDENT WITH NURSE AND SECURITY. PT'S DAUGHTER IN ROOM AT ABOUT 1430 WITH MANY QUESTIONS, DESPITE NURSE DISCUSSING THOSE QUESTIONS WITH HER PREVIOUSLY ON THE PHONE. SEE NOTE. SHE ALSO STATED THAT HER FATHER SAID THAT THE "DOCTOR CAME IN AND DIDNT BOTHER TO REMOVE HIS HAT!" THE NURSE EDUCATED THE DAUGHTER THAT NONE OF THE DOCTORS WERE WEARING HATS TODAY. PT SITTING UP IN BED EATING DINNER AT THIS TIME. BED IN LOW POSITION, CALL LIGHT ON THE WALL. VIDEO MONITORING IN PROGRESS.
--- NOTE | 2018-12-16 20:10 | NUR ---
SI precautions called Giovanni at 1951 to assure remote camera monitoring and Q 15 min suicide precaution checks are being documented.
--- NOTE | 2018-12-16 20:16 | NUR ---
PT was transferred from PCU today was admitted 12/10/18 with AMS post status epilepicus and has suicide precautions and seizure precautionns in place. Per day RN MAVIS Sousa was in to see PT today. DR Romeo Coughlin saw PT and recommends InPT Psych [place] on DC. PT says he has scheduled [facility] scheduled this week. English war with DX of PTSD. Resting quietly line of sight per remote camera monitoring. Continue to assess.
--- NOTE | 2018-12-17 06:16 | NUR ---
PT CONTINUES ON SUICIDE PRECAUTIONS. QUIET AND COOPERATIVE WITHOUT ANY ATTEMPTS AT SELF HARM. CONTINUES ON REMOTE CAMERA MONITORING WITH LINE OF SIGHT AND Q 15 MIN DOC BY CREDIT RISK ANALYTICS MANAGER. FLAT AFFECT, RESPONDS TO VERBAL STIMULI AND OBEYS COMMANDS. TAKES SMALL AMTS OF WATER ONLY THIS 12 HOUR SHIFT. CONTINUES ON NS AT 75 ML HOUR. USES URINAL AND MOSTLY CONTINENT, THIS AM DRIBBLED THEN INCONTINENT OF URINE. pt AGREES HE SAID HE WANTED TO . DENIES HE HAD A PLAN. PT VERBALIZED HE WAS SUPPOSED TO CHECK INTO THE [facility]. NO VISTORS OR PHONE CALLS FROM FAMILY OR FRIENDS OBSERVED THIS SHIFT.
--- NOTE | 2018-12-17 07:33 | NUR ---
VERIFIED VIDEO MONITORING CALLED SCU MONITOR AGUILAR TO VERIFY MONITORING
--- NOTE | 2018-12-17 12:17 | NUR ---
PT STATUS PT TRIED TO EXIT BED, DEVELOPED SHAKING. BLADDER CHANGER INFORMED ME THAT HE HAD DONE THIS YESTERDAY AND THEN HIS BEHAVIOR ESCALATED UNTIL SECURITY WAS CALLED. I CALLED THE PT'S DAUGHTER, TG. SHE STATED IT WOULD BE A WHILE BEFORE SHE COULD GET HERE. I CALLED THE CAFE AIDE. PT WAS ABLE TO SOOTHE, BUT THEN IMMEDIATELY EXPERIENCED ANOTHER EPISODE. I CALLED HOSPITALIST. HE STATED THAT THE ZYPREXA WILL DISSOLVE IF I COULD MANAGE TO GET IT IN THE PT'S CHEEK. I WAS SUCCESSFUL.
--- NOTE | 2018-12-17 12:18 | NUR ---
Upon receiving a request for spiritual care services for patient, I entered patient's room. Patient's RN Margoth tells me that patient has PTSD and is having an episode at present. She explains that yesterday security had to be called. I provide a calming presence and prayer for patient and patient eventually rests and is peaceful. I will continue to remain available to patient and family.
--- NOTE | 2018-12-17 16:11 | NUR ---
SHIFT SUMMARY PT HAD A FEW EPISODES TODAY WITH ANXIETY. I AND THE SENIOR GOVERNMENT PROGRAM ANALYST ATTEMPTED TO COMFORT HIM, BUT THE EPISODES CONTINUED. I WAS ABLE TO ADMINISTER SUBLINGUAL ZYPREXA PRN. THE DAUGHTER ARRIVED, SHE EXPRESSED CONCERN OVER WETHER THE SYMPTOMS MAY BE RELATED TO A VITAMIN B12 DEFICIENCY. I WILL DEFER THIS QUERY TO THE HOSPITALIST. PT HAS BEEN CALM SO FAR SINCE THE ZYPREXA. AT TIMES HE IS RESPONSIVE TO QUESTIONING, AT OTHER TIMES HE IS NOT. WHEN NOT AGITATED HE REQUESTS THE URINAL AND FLUIDS TO DRINK. I NOTICE HE HAS NOT HAD A RECORDED BM SINCE ADMISSION.
--- NOTE | 2018-12-17 16:29 | NUR ---
SHIFT SUMMARY ADDENDUM Q 4 SUICIDE ENVIRONMENTAL SAFETY ASSESSMENTS ORDERED. SHEMAR KNAPP TODAY. HOPING FOR PLACEMENT TO AN INPATIENT PSYCH FACILTY, [place].
--- NOTE | 2018-12-17 17:54 | NUR ---
PT FELT URGE FOR BM UNABLE TO PLACE HIM ON THE BSC. TRIED A BEDPAN BUT PT WAS UNABLE TO PRODUCE A BM. I BROUGHT A NURSING RECIPE CALLED "[facility]" TO ASSIST HIM. HOWEVER, PT WAS BACK TO BEING UNRESPONSIVE. THESE EPISODES SEEM TRIGGERED BY ANXIETY TO MY EYES. HE WAS UPSET THAT WE COULD NOT PLACE HIM ON THE BSC, BUT HE WAS UNWILLING/UNABLE TO ASSIST US WITH TRANSFER, SO IT WAS UNSAFE. IMMEDIATELY AFTER THAT, HE WENT UNRESPONSIVE.
--- NOTE | 2018-12-17 19:54 | NUR ---
PT had episode on day shift where he became limp and staring tremulous and zyprexa was taken per oral mucosa and he eventually became responsive again. DTR Merry at bedside at shift change and tearful. PT was staring and making utterances in Lithuanian. DTR says she has never previously seen Dad like that and he doesn't speak Lithuanian. He has poor eye contact tense rigid and not interecting for extended period. Offered xyprexa and DTR declined. PT finally relaxed and resting quietly. In Psych tx recommended by DR Coughlin on DC. [facility] Remote camera monitering verified 1930 with Giovanni.
--- NOTE | 2018-12-18 01:48 | NUR ---
DR BUTCHER UPDATED ON need for bowel care for PT. Bowel care meds ordered. Assisted PT with oral intake. Will offer bowel care on next rounds.
--- NOTE | 2018-12-18 07:09 | NUR ---
CALLED SCU MONITOR VERIFIED VIDEO MONITORING IS ACTIVE WITH MONITOR AARON
--- NOTE | 2018-12-18 07:15 | NUR ---
PT had several hours of unusual neuro activity where he was not making eye contact, and would not swallow or move extremitities. His Daughter was at bedside and PT was not responding to her except to make utterances in Nepali which she says he doesn't speak. PT then responded to submucosal zyprexa. Medicated with tylenol and requip for hs RLS. PT able to verbalize and swallow once episode resolved. Took multiple ensures and fed self chocholate pudding. Incontinet x 1 of urine then used urinal several times.
--- NOTE | 2018-12-18 10:50 | NUR ---
PT STATUS RIBBON WINDER CALLED FOR HELP. THE BED ALARM SOUNDED. I AND OTHER NURSING STAFF CAME INTO THE ROOM TO FIND HER HOLDING THE PT UP HE WAS SLUMPED OVER THE COMPUTER DESK. SHE STATED THAT HE GOT OUT OF BED & WALKED TOWARDS THE BATHROOM AND SHE CAUGHT HIM HE SLUMPED OVER THE DESK. HE DID NOT FALL. WE PUT HIM BACK INTO BED, RESET THE ALARM. VIDEO MONITOR DID NOT CALL WE RESPONDED IMMEDIATELY. HE APPEARS TO BE IN ANOTHER UNRESPONSIVE STATE. HE EXPERIENCES THESE FREQUENTLY.
--- NOTE | 2018-12-18 17:10 | NUR ---
SHIFT SUMMARY MD PHYSICIAN DR. WATTS CALLED TODAY FOR AN UPDATE ON THE PT, REQUESTED TO SPEAK TO DR. GARSIA. PT HAS EXPERIENCED SEVERAL UNRESPONSIVE/SHAKY EPISODES THROUGHOUT SHIFT. PT HAS EXPERIENCED AUDITORY AND VISUAL HALLUCINATIONS, SPEAKING WHAT HE MAY BELIEVE TO BE FRENCH. WHEN NOT EXPERIENCING THESE EPISODES, HE IS COOPERATIVE AND CAN FEED HIMSELF - RESPONDING TO STAFF. PT DID HAVE A BM TODAY.
--- NOTE | 2018-12-19 06:42 | NUR ---
SHIFT SUMMARY PT IS AN 78 Y/O MALE, ADMITTED FOR ACUTE ENCEPHALOPATHY. HE HAS BEEN HAVING EPISODES OF PSEUDOSEIZURES, BLANK STARING. PT HAD TWO MAJOR EPISODES DURING THE NIGHT, AT APPROXIMATELY 1930 AND 0530, BOTH TIMES AFTER HE HAD GOTTEN UP TO USE THE BSC, AND WAS MEDICATED WITH PRN ZYPREXA. PT'S BP WAS ELEVATED DURING HIS EPISODES IN THE 170S SYSTOLICALLY, THOUGH IT CAME DOWN TO THE 140S SYSTOLICALLY AFTER HIS EPISODE FINISHED. ALL OTHER VITALS STABLE. PT SLEPT WELL BETWEEN EPISODES THROUGH THE NIGHT. NO OTHER ACUTE CHANGES IN PT CONDITION NOTED DURING THE NIGHT. WILL CONTINUE TO MONITOR AND TREAT PER EMAR UNTIL HAND OFF TO DAY SHIFT RN.
--- NOTE | 2018-12-19 12:59 | NUR ---
multicultural internship report while assisting pt with urinal he go into seizure type activity, blank stare, limp extremities. dr abdullahi notified return to room to witness. state ptsd related. pt @ this time rigid, gripping handrails, appears fearful, when attempt to communicate with him he speaks in language extremely anxious. given zyprexazydis 5mg/dr abdullahi. attempt to calm/reassure pt & son came in to sit with him.
--- NOTE | 2018-12-19 16:58 | NUR ---
SUMMARY THIS AM PT WAS SITTING UP IN BED, A/O X1 HOWEVER ANSWERING BASIC QUESTIONS APPROP, CALM/PLEASANT AFFECT, ALTHOUGH SOMEWHAT FLAT/WITHDRAWN. APPROX 1200 HOSPITAL SECURITY OFFICER IN TO ASSIST W URINAL, PT HAD PSUEDO SEIZURE SAQIB BECOME LIMP, STARING. WHEN HE AROUSED HE BECAME EXTREMELY AGITATED, RIGID, FEARFUL. SPEAKING IN NEPALI. HX PTSD NEPALI WAR PER FAMILY. STATE THIS HAS BEEN ONGOING. PRN ZYPREXA ZYDIS GIVEN. PT WAS ABLE TO CALM SOMEWHAT @ THAT TIME. DR GARSIA CAME BACK TO ROOM TO ADDRESS FAMILY QUESTIONS, PT AGAIN BECOME EXTREMELY AGITATED, FEARFUL. THREATENING STAFF ATTEMPTING OOB. DR GARSIA ORDER ZYPREXA 5MG IM. CAP LINING MACHINE OPERATOR SIT W PT ABLE TO CALM HIM SOMEWHAT. PT STATE R HIP PAIN ORDER ONE TIME ROXANOL 5MG. PT CONTINUES ON SUICIDE PRECAUTIONS, THIS AM WHILE CALM HE STATED NO SI.
--- NOTE | 2018-12-20 06:21 | NUR ---
SHIFT SUMMARY NO ACUTE CHANGES TO REPORT OVERNIGHT. PT HAS SLEPT MOST OF THE NIGHT. PT HAS HAD NO PSEUDO SEIZURES FOR MOST OF THE NIGHT UNTIL THIS AM AROUND 0620. HE GOT UP STATING HE HAD TO USE THE BATHROOM AND WENT INTO A PSEUDO SEIZURE, HIS BODY WENT LIMP AND HE WOULD NOT RESPOND TO STAFF. PT CAME OUT OF IT AND STARTED RESPONDING TO STAFF AFTER ABOUT 10 MINUTES. NO ACUTE CHANGES OVERNIGHT. ASSESSMENT REMAINS AT BASELINE. VITALS STABLE. SI PRECAUTIONS IN PLACE. WILL CONTINUE TO MONITOR AND REPORT TO ONCOMING RN.
--- NOTE | 2018-12-20 10:47 | NUR ---
UPDATE FAXED TO SHORTY AT [facility] AFTER RECEIVING A PHONE CALL ABOUT NEED FOR CONINUATION OF NEED FOR BED
--- NOTE | 2018-12-20 16:34 | NUR ---
SUMMARY THIS AM PT VERY LETHARGIC, APPEARS WEAK/FATIGUED. MINIMAL VERBAL INTERACTION. HE REQUIRED ASSIST TO EAT. WHILE FEEDING HIM BF HE STARTED TO BECOME AGITATED, RIGID, CLENCHING. GAVE ZYPREXA ZYDIS 5MG WITH AM MEDS. HE CONTINUED LETHARGIC THRU THE MORNING. SON & DAUGHTER CAME IN TO VISIT HOWEVER DID NOT STAY LONG, PT AGAIN BECAME AGITIATED WHILE THEY WERE ATTEMPTING TO VISIT PROMPTING THEM TO LEAVE. APPROX 1400 PT BECOME EXTREMELY AGITATED, ATTEMPTING TO CRAWL OUT OF BED HEAD FIRST, BRANCHER CONTE IN TO ASSIST, PT GRABBING & CLENCHING, REQUIRE 3 STAFF TO KEEP HIM FROM FALLING OUT OF BED. HE STATE REPEATEDLY "I GOTTA GO, I WANT TO ". NURSE SUPVR UP TO ASSIST WITH REASSURANCE, THERAPUETIC COMMUNICATION, PRAYER WITH PT. ZYPREXA 5MG IM GIVEN. PT HAS BEEN ABLE TO CALM. LATE AFTERNOON WAKE UP PLEASANT, INTERACTING, A/O X2, STATE WOKE UP FROM [place], STATE "GLAD TO MEET YOU AGAIN". STATE VAGUE MEMORY OF EVENTS/PSUEDO SEIZURES. DR GARSIA NOTIFIED. VSS. WILL CONTINUE TO MX.
--- NOTE | 2018-12-21 05:28 | NUR ---
SHIFT SUMMARY OVERALL PT HAS DONE WELL FOR MOST OF THE NIGHT. HE HAS BRIEF EPISODES OF PSUEDO SEIZURES THAT ONLY LAST FOR A FEW MINUTES AT A TIME. PT HAS BEEN PLESANT AND COOPERATIVE WITH STAFF. CONVERSING WITH STAFF AND LAUGHING. PT HAS SOME CONFUSION, BUT IS EASILY DIRECTABLE. NO ACUTE CHANGES OVERNIGHT.PT ASSESSMENT AT BASELINE. WILL CONTINUE TO MONITOR AND REPORT TO ONCOMING RN.
--- NOTE | 2018-12-21 12:06 | NUR ---
PATIENT CLIMBED OUT OF BED AT 0830 AND FELL TO THE FLOOR. NO VISIBLE INJURY NOTED. PATIENT IS IN NICHOLAS VEST AND BILATERAL SOFT WRIST RESTRAINTS. PATIENT ATTEMPTED TO STRANGLE HIMSELF WITH HIS HANDS TWICE. BRAKE DRUM LATHE OPERATOR CALLED RN WHO RAN TO PATIENT'S ROOM TO STOP HIM FROM HURTING HIMSELF. PATIENT IS VERY EMOTIONAL AND SUICIDAL TODAY. HE HAS MADE COMMENTS OF WANTING TO AND TAKE HIS OWN LIFE. PATIENTS [facility] CALLED RN TO GET AN UPDATE ON THE PATIENT. RN MEDICATED THE PATIENT PER EMAR FOR AGITATION. THE QUALITY CONTROL OPERATOR'S REPOSTIONED THE PATIENT AND LAID HIM FLAT ON HIS BACK, THE PATIENT AT THIS TIME WAS THANKING THEM AND CALM. PATIENT IS IN ROOM RESTING HIS EYES. WILL CONTINUE TO MONITOR.
--- NOTE | 2018-12-21 17:21 | NUR ---
PATIENT IS ALERT AND ORIENTED TO SELF. THROUGHOUT THE MORNING, THE PATIENT WOULD HAVE EPISODES OF AGITATION, CONFUSION, HALLUCINATIONS, DELUSIONS. DURING THESE EPISODES, THE PATIENT WOULD LAY STILL AND STARE OFF INTO SPACE OR ATTEMPT TO CLIMB OUT OF BED, STRANGLE HIMSELF WITH HIS HANDS OR SUFFOCATE HIMSELF WITH A PILLOW. PATIENT CLIMBED OVER THE SIDE RAILS OF THE BED AND FELL TO THE FLOOR BELOW THE BED. NO APPARENT INJURIES. DR. HE JUST SAW THE PATIENT. PATIENT HAS BEEN PLEASANT SINCE AROUND NOON TODAY. NICHOLAS VEST AND SOFT BILATERAL WRIST RESTRAINTS IN PLACE. WILL CONTINUE TO MONITOR.
--- NOTE | 2018-12-21 20:30 | NUR ---
PT HAS BEEN EXTREMELY AGGITATED AND ANXIOUS SINCE BEGINNING OF SHIFT. HE IS ROCKING AND WRITHING IN BED, PULLING ON RESTRAINTS AND HAS CONTINUOUSLY GOTTEN WRIST RESTRAINTS FREE AND OUT OF HIS NICHOLAS VEST. HE HAS USED HIS FEET TO DETACH HIS SOFT WRIST RESTRAINTS. HE CALMS OCCASIONALLY WHEN STAFF IN ROOM BUT THEN IS RELENTLESS AT GETTING UNRESTRAINED WHEN LEFT ALONE. CAMERA MONITORING HAS ALERTED STAFF REPEATEDLY. HE'S HALLUCINATING, SPEAKING IN A FOREIGN LANGUAGE, HAVING WAR DELUSIONS AND IS UNABLE TO BE REDIRECTED OR REORIENTED AT THIS TIME. HE ANSWERED A COUPLE YES/NO Q'S BUT OTHERWISE LOOKS AT STAFF W/A BLANK STARE AND LIMITED INTERACTION. HE CONT'S A RISK OF HARM TO SELF AND WAS ATTEMPTING TO GET UNTIED RESTRAINTS NEAR TO HIS NECK. PATIENT HAD 3 ATTEMPTS OF CLIMBING OUT OF BED TODAY HAVING FALLEN ONCE AND ATTEMPTED TO STRANGLING AND SUFFICATE HIMSELF. HE ALSO HAD SHEETS UP OVER HIS FACE SO THESE WERE REMOVED. PRN MEDS AREN'T AVAILABLE AT THIS TIME SO MD WAS ALERTED OF SITUATION W/TOUGH CUFF RESTRAINTS RX'D X4 EXT'S PRN W/NICHOLAS VEST TO REMAIN INTACT AND INSTRUCTION TO USE SOFT ANKLE RESTRAINTS IF POSSIBLE. TUFF CUFFS WERE APPLIED TO WRISTS, NICHOLAS VEST WAS AGAIN REPLACED AND SOFT ANKLES RESTRAINTS ARE BEING TRIALED AT THIS TIME. WILL MONITOR FOR EFFECT AND MEDICATE PRN WHEN TIME. PT REFUSED PO MEDS AT HS.
--- NOTE | 2018-12-21 20:50 | NUR ---
PT WAS FOUND SITTING UP IN BED AND HAD ANKLES UP NEAR HANDS AND HAD UNDONE HIS ANKLE RESTRAINTS. TUFF CUFFS WERE DETERMINED NECESSARY AT THIS TIME AND WERE APPLIED TO HIS ANKLES WELL. HIS HALLUCINATIONS AND DELUSIONS SEEM TO BE SUBSIDING HE IS SLIGHTLY MORE CALM AND CONVERSATIONAL BUT HE REMAINS RESTLESS/AGGITATED AND W/CONTINUED ATTEMPTS TO GET OUT OF RESTRAINTS. WILL MEDICATE PRN WHEN TIME. MD DID NOT WANT TO RX ANYTHING ADDITIONAL TO ZYPREXA WHEN I SPOKE TO HIM MOMENTARILY AGO.
--- NOTE | 2018-12-21 22:15 | NUR ---
PT REMAINS RESTLESS, FIGITY AND W/RELENTLESS IN ATTEMPTS TO GET OUT OF RESTRAINTS BUT HE IS MUCH MORE PLEASANT AND COOPERATIVE AT THIS TIME. HE IS LAUGHING AND INTERACTING W/STAFF AND ACTUALLY GOT DATE CORRECT DURING ORIENTATION Q'S. HE IS UNSURE OF WHEREABOUTS AND SITUATION BUT AGREED TO TAKE HS MEDS. ZYPREXA MM PRN RECIEVED WELL TO ASSIST IN KEEPING PT CALM AND PROMOTING SLEEP/REST CYCLE. WILL MONITOR FOR EFFECT.
--- NOTE | 2018-12-22 04:34 | NUR ---
SUMMARY: PT REMAINS ON SI PRECAUTIONS AND BEGAN SHIFT VERY AGGITATED AND ANXIOUS W/HALLUCINATIONS AND DELUSIONS AND VERY LIMITED VERBAL INTERACTION. HE WAS FIXATED ON REMOVING RESTRAINTS AND DID SO SUCCESSFULLY A NUMBER OF TIMES. HE ATTEMPTED TO COVER FACE W/SHEETS AND TRIED TO GET DETACHED RESTRAINTS NEAR TO HIS NECK. INTENTION TO HARM SELF WAS SPECULATED. HE ALSO MADE MULTIPLE ATTEMPTS OOB DESPITE FALLING ON DAY SHIFT. STAFF TRIED REPEATEDLY TO REORIENT AND REDIRECT HIM W/O SUCCESS. HE WAS COMBATIVE DURING W/ADL'S/ATTENDS CHANGES. TUFF CUFF RESTRAINTS X4 EXT'S WERE RX'D RESULT IN ADDITION TO NICHOLAS VEST AND PT HAS SINCE RECIEVED X1 DOSE ZYPREXA MM PRN. HE HAS NOW BECOME MUCH CALMER AND NO LONGER APPEARS TO BE HALLUCINATING. HIS INTERACTIONS ARE MORE SENSICAL AND PT WAS EVEN ORIENTED TO DATE/TIME LATER IN THE SHIFT. HE CONT'S RELENTLESS IN ATTEMPTS TO REMOVE RESTRAINTS BUT ISN'T NEARLY AGGITATED OR ROCKING AND WRITHING IN BED. VEST AND TAT RESTRAINTS REMAIN INTACT THOUGH D/T MOOD LABILITY AND BEHAVIOR IMPULSIVITY. HE INITIALLY REFUSED MEDS BUT THEN BECAME COMPLIANT W/CARE AND TOOK HS MEDS. PT HAS SLEPT SOME THIS SHIFT AND HAS DENIED PAIN/COMPLAINTS DURING PERIODS OF ORIENTATION. NO ACUTE CHANGES, VSS/AFEBRILE. NO SEIZURE ACTIVITY EVIDENT AND FALL PREC'S ALWAYS IN PLACE W/TURN SCHEDULE MAINTAINED DESPITE FREQUENTLY REPOSTIONING SELF IN BED. ATTENDS CHANGED PRN AND URINAL ASSIST PROVIDED. PT AWAITING INPATIENT PSYCH PLACEMENT. WCTM AND REPORT TO DAY RN.
--- NOTE | 2018-12-22 16:10 | NUR ---
PT SAT UP IN BED STATES "YOU PEOPLE ARE VERY KIND" ABLE TO STATE NAME AND AND TAKE MEDICATIONS AND SIPS OF WATER. CALM, COOPERATIVE AT THIS MOMENT.
--- NOTE | 2018-12-22 17:40 | NUR ---
Pal Spiritual Care note: I met Byron last week when he was in PCU. We had a good rapport. Today, he was alone in room, eyes slightly open and not immediately responsive. I began to talk to him in a clam manner. He woke up, looked at me, and asked where I have been. I have not seen Byron as yet this week. He appeared to remember pieces of our conversation from last week. He seemed happy to see me. Then, his eyes rolled back in his head and his whole body stiffend. He was clinching his fists tightly. @ 1 minute passed and he began to relax. He did not respond to me anymore, but laid there, eyes open. He began to tear up and became stiffend again. Informed RN and COLLAR TURNER and they came to observe. Advised Palliative Care RN of Byron's condition. I stayed with him, providing calm presence and assurance of love. I will remain available.
--- NOTE | 2018-12-22 18:05 | NUR ---
SHIFT SUMMARY NON VERBAL THROUGHOUT BEGINNING OF SHIFT. TUFF CUFF RESTRAINTS TO UPPER EXTREMETIES REMOVED THIS AFTERNOON. NICHOLAS HAS REMAINED IN PLACE. PT CALM AND COOPERATIVE THIS P.M. ABLE TO TRANSFER 2 PERSON ASSIST TO BSC. TEARFUL DURING PALLIATIVE CARE THIS P.M. CONTINENT VS INCONTINENT.
--- NOTE | 2018-12-22 18:18 | NUR ---
Initial Visit: Palliative Care Consult for Symptom Management and Advanced Care Planning. Pt is resting in bed upon arrival and is in [place] Vest. Pt is A&Ox2 and denies pain at this time. Pt almost imediately engages in conversation regarding family. He reports his daughter Merry moved in with him and helps with his needs. Pt states his daughter has him write things in his notebook to help him remember to do certain things for the next day. Pt is tearful often throughout the visit. He talks about losing his mom and dad. He also discusses losing 3 of his 4 sisters. Validated Pt's feelings and attempted to distract Pt by discussing other aspecs of his life. Pt continues to revert back to losing his parents and siblings. Pt continues to be tearful. Asked if he would like to watch television and Pt denies need. Ended visit and instructed Pt palliative care will F/U with therapeutic visits. Spoke with bedside nurse Mojgan and HORACE Stevens and discussed case. Palliative Care will remain available for symptom management and therapeutic visits.
--- NOTE | 2018-12-23 04:30 | NUR ---
SENIOR ASSISTANT MANAGER SUMMARY PT AAOX3 FOR MAJORITY OF SHIFT. PLEASANT AND CALM THIS SHIFT AND COOPERATIVE WITH CARE. PT HAD 2 MORE EPISODES TONIGHT WHERE PT BECOMES MOSTLY NON VERBAL AND STARES BLANKLY. PT BECOMES VERBAL WITHIN 15-30 SECONDS AND IS BACK TO BASELINE WITHIN A COUPLE MINUTES. SHORTLY AFTER EPISODES, PT IS A BIT MORE CONFUSED THAN BASELINE BUT QUICKLY REORIENTS. BOTH INSTANCES OCCURED WHILE PT WAS ON BEDSIDE COMMODE ATTEMPTING TO HAVE A BM. NICHOLAS VEST REMAINS ON PT IS STILL IMPULSIVE, ATTEMPTING TO GET OOB AT TIMES MAINLY TO USE THE BATHROOM. PT HAS BEEN ABLE TO SLEEP WELL TONIGHT. REMAINS ON SI PRECAUTIONS. VSS, WILL CONTINUE TO MONITOR.
--- NOTE | 2018-12-23 09:51 | NUR ---
0950 PATIENT CONTINUES TO SLEEP. AFTER DISCUSSING WITH DOCTOR AND MUSIC JOURNALIST WHO ARE BOTH FAMILAR WITH HIM AND AFTER READING HIS BEHAVIOR HISTORY THIS NURSE WILL LET HIM SLEEP AND ADMINISTER HIS MEDS ONCE HE IS AWAKE AND ABLE TO TAKE THEM. PATIENT SHOWS NO SIGNS OF DISTRESS HE SLEEPS.
--- NOTE | 2018-12-23 15:28 | NUR ---
Spoke with bedside nurse Anastacia and discussed case. Anastacia inquires if code status has been discussed with Pt and family. No other concerns reported at this time. Pt remains calm and still in ajay vest. Called and spoke with Pt's daughter Merry. Listened as Merry discusses how her dad (Pt) usually is at home. She reports Pt never has these episodes of confusion and blank stares. She inquires if his hospital stay may be contributing to his worsening PTSD due to unfamiliar surroundings. Merry reports plan to continued with conversations with [facility] in establishing [facility] conneciton. She also mentions the possibility pursuing guardianship. Engaged in discussion regarding AD/POLST and Merry reports finding a completed AD. She reports when she comes to visit she will bring in a copy for medical records. Merry expresses appreciation of call and for Palliative Care Chaplian Kimmy's visits. No other concerns reported at this time. Palliative Care will remain available.
--- NOTE | 2018-12-23 17:47 | NUR ---
Pal Spiritual Care note: Earle was more subdued today. He was calm and awake. He is a bit slow to respond. He smiled when he saw me and appered to remember me from previous visits. Today, I mostly held his hand and comforted him. He did become tearful at times, but his mind moved on to something else fairly quickly. I will continue to provide comfort, certified drug counselor and prayer.
--- NOTE | 2018-12-23 18:00 | NUR ---
PATIENT SLEPT ALL MORNING AND WAS VERY CONFUSED WHEN HE WOKE UP. THIS NURSE HAD TO KEEP ASSURING HIM HE WAS NOT IN ASSISTED. HE WOULD OFTEN START SPEAKING MACEDONIAN . HE DID NOT BECOME VIOLENT AND MOSTLY HAD A FLAT AFFECT THE REST OF THE AFTERNOON. WHILE FEEDING THE PATIENT THIS NURSE HAD TO REMIND HIM TO SWALLOW HIS ICE CREAM. HE WOULD DO OK THEN START STARRING OFF IN SPACE , NO SEIZURE LIKE ACTIVITY NOTED, JUST FLAT AFFECT AND NO SWALLOWING. ONCE PROMPTED HE WOULD FOLLOW THROUGH. NO COMPLAINTS OF PAIN . PATIENT DID SAY HE WAS AFRAID BUT WHEN ASKED WHY HE DID NOT RESPOND AND WHEN HE DID IT WAS IN MACEDONIAN WHICH THIS NURSE DOES NOT SPEAK. HE IS REDIRECTABLE AND QUIET AT THIS TIME.
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
--- NOTE | 2018-12-24 09:08 | NUR ---
REMOTE MONITOR CALL TO REMOTE MONITOR. BEHAVIORAL HEALTH RN CATIE REPORTS CAMERA WORKING AND PT IN ROOM WORKING WITH PATIENT.
--- NOTE | 2018-12-24 17:28 | NUR ---
SHIFT SUMMARY NO ACUTE CHANGES. PATIENT VERY DROWSY AFTER AN EPISODE THIS MORNING WHERE HE WAS STARING INTO SPACE AND NOT RESPONDING TO STAFF WHEN SPOKEN TOO. PATIENT DECLINED BREAKFAST AND WAS VERY SLOW TO RESPOND WHEN WORKING WITH OT AFTER BREAKFAST. PATIENT WOKE UP FOR LUNCH, ATE WELL, AND WAS CONVERSATIONAL WITH STAFF. PATIENT THEN SLEEPING MOST OF THE AFTERNOON. REPORTED PAIN ONCE WHEN ASKED BUT DECLINED PAIN MEDICATION AND STATED HE WAS COMFORTABLE AFTER REPOSITIONING. PATIENT DENIES NAUSEA AND SHORTNESS OF BREATH. PATIENT PLEASANT AND COOPERATIVE. NO STATEMENTS OF SUICIDAL IDEATION OR SELF HARM. REMOTE MONITOR CAMERA ON.
--- NOTE | 2018-12-24 21:59 | NUR ---
2000 PT HAS ZERO INTERACTION WITH THIS NURSE OR WITH FAMILY AT SIDE, PTS LEFT EYE DEVIATED TO LEFT AND RIGHT EYE CENTERED DURING ASSESSMENT; PTS BILATERAL EYE PUPILS HAD MINIMAL DILITATION WHEN LIGHT SHOWN IN EYES, ABLE TO SWALLOW PILLS CRUSHED IN APPLESAUCE WITH SMALL BITES.
--- NOTE | 2018-12-25 05:47 | NUR ---
SHIFT SUMMARY: 78 Y/O MALE RESTED COMFORTABLY ALL SHIFT, ATTENDS DIAPERS CHANGED AND REPOSITIONED Q2H VIA STAFF, NO WORDS VOICED ALL SHIFT WITH GLAZED LOOK NOTED IN EYES WITH SCANT CONSTRICTION OF BILATERAL PUPILS NOTED WITH LIGHT, NO PAIN GRIMACING NOTED, BED ALARM APPLIED, BED LOW POSITION, CALL LIGHT AT SIDE, NO SUCIDIAL IDEATIONS EXPRESSED OR NOTED.
--- NOTE | 2018-12-25 09:02 | NUR ---
remote monitor call to remote monitor rashaun to confirm camera on in room. per rashaun camera on and patient resting in bed.
--- NOTE | 2018-12-25 17:24 | NUR ---
SHIFT SUMMARY NO ACUTE CHANGES. PATIENT DENIES PAIN, NAUSEA, AND SHORTNESS OF BREATH. PATIENT WORKED WITH PT/OT TODAY. PATIENT UP AT EDGE OF BED THIS AFTERNOON WITH OT. PATIENT PLEASANT AND COOPERATIVE WITH CARE. PATIENT EATING WELL TODAY. CALL LIGHT IN REACH.
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
--- NOTE | 2018-12-26 13:43 | NUR ---
IP PSYCH: [facility]ED PROVIDER AND NURSE NOTES FOR 12/25 THROUGH 12/26 @ 1300 [facility] [phone]. NO WORD ON BED AVAILABILITY.
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
--- NOTE | 2018-12-27 02:34 | NUR ---
12/27/18 0215 AWAKENED FOR TURNING AND BRIEF CHANGE HE HAD LARGE INCONTINENCE. DEDRICK-CARE GIVEN AND PT WITH EYES OPEN AND STARING UPWARD. SOFT VERBAL SOUNDS BUT UNRESPONSIVE TO QUESTIONS/STATEMENTS. RESTRAINTS MAINTAINED FOR SAFETY.
--- NOTE | 2018-12-27 07:14 | NUR ---
12/27/18 0540 PT SLEEPING WELL THIS AM. REPOSITIONED Q 2 HOURS. RESTRAINTS MAINTAINED FOR SAFETY. VITALS STABLE. PT NOT COMBATIVE THIS SHIFT.
--- NOTE | 2018-12-27 17:59 | NUR ---
PATIENT HAD MULTIPLE EPISODES OF AGGRESSIVE TERROR ATTACKS. RESTRAINTS HAVE BEEN LEFT IN PLACE ALL SHIFT. NUTRITION OFFERED AND CIRC CHECKS DONE WELL PERSONAL ADLS PERFORMED. PATIENT HAS NO MEMORY OF SUCK ATTACKS . OTHER THAN THESES EPISODES PATIENT REMAINS VERY DOCILE, KIND, AND SOFT SPOKEN. NO ACUTE CHANGES. WAITING ON [facility] TO NOTIFIY PSYCH UNIT FOR PLACEMENT.
--- NOTE | 2018-12-27 23:36 | NUR ---
12/27/18 2310 NON-VERBAL AND STARING STRAIGHT AHEAD STAFF REPOSITION HIM IN BED AND CHANGE BRIEF. STAFF VERBALLY REASSURING HIM. EPISODE LASTED ABOUT 15 MINUTES.
--- NOTE | 2018-12-28 05:47 | NUR ---
12/28/18 0545 AWAKENED FOR VITALS AND ROUTINE ROUNDS. NO VOIDING BUT WHEN OFFERED URINAL HE DID VOID. REPOSITIONED IN BED. DROWSY BUT ANSWERS APPROPRIATELY. ALERT TO SELF ONLY AT THIS TIME.
--- NOTE | 2018-12-28 17:45 | NUR ---
PT IS A/OX2, PLEASANT AND COOPERATIVE TODAY, ABOUT 1300 THE PT WAS TAKEN OUT OF RESTRAINTS, AND WAS GIVEN A SHOWER BY THE PRICING CLERK, THE PT HAS BEEN CALM AND COOPERATIVE SINCE AND RESTRAINTS WERE DC'D, THE PT APPEARS TO BE BREATHING EASILY ON RA AT THIS TIME, THE PT WAS MEDICATED FOR PAIN WITH TYLENOL X1 THIS AM, CALL LIGHT IN REACH, WILL CONTINUE TO MONITOR AND ASSESS FOR CHANGES
--- NOTE | 2018-12-28 23:43 | NUR ---
12/28/181999 PT VERY PLEASANT AND COOPERATIVE. ALERT TO PERSON AND PLACE ONLY. SUICIDAL PRECAUTIONS IN EFFECT INCLUDING CONSTANT VIDEO MONITORING. DENIES WANTING TO HARM SELF. ALL RESTRAINTS REMOVED SINCE DAY SHIFT. BED ALARM ON.
--- NOTE | 2018-12-29 06:03 | NUR ---
12/29/18 0530 AWAKENED FOR VITALS AND ORAL INTAKE OF WATER. NO COMPLAINTS AT THIS TIME. HAS USED THE URINAL SEVERAL TIMES THIS SHIFT. RESTRAINTS HAVE BEEN OFF ALL SHIFT. RN HAS NOT SEEN ANY "STARING" EPISODES THIS SHIFT. VITALS REMAIN STABLE.
--- NOTE | 2018-12-29 16:17 | NUR ---
PT IS ALERT, ORIENTED TO SELF, TODAY THE PT WAS ASSISTED UP INTO THE CHAIR, WHEN RISING OUT OF BED THE PT FEEL BACK AND HAD A BLANK STARE, DID NOT ANSWER , A MOMENT LATER IT SEEMED THE PT BECAME MORE ALERT AND WAS ABLE TO ANSWER SIMPLE QUESTIONS, THE PT WAS THEN ASSISTED TO THE CHAIR AND SAT UP FOR MOST OF THE DAY, THE OCUPATIONAL THERAPIST ALSO ATTEMPTED TO WORK WITH THE PT, HOWEVER HE HAD THE SAME REACTION HE DID IN THE AM, THE BED ALARM AND CHAIR ALARM USED T/O THE DAY, THE PT REMAINS ON SI PRECAUTIONS, WILL CONTINUE TO MONITOR AND ASSESS FOR CHANGES
--- NOTE | 2018-12-30 06:34 | NUR ---
SHIFT SUMMARY PT IS AN 78 Y/O MALE, ADMITTED FOR ACUTE ENCEPHALOPATHY. HE IS A&O X 2, AND PLEASANTLY COOPERATIVE WITH CARE. PT HAD ONE EPISODE OF PSEUDO-SEIZURE LIKE EPISODE DURING THE NIGHT WHEN HE GOT UP TO USE THE BEDSIDE COMMODE. HE DENIED ANY COMPLAINTS OF PAIN, NAUSEA OR SOB. VITAL SIGNS WERE STABLE. PT SLEPT WELL THROUGH THE NIGHT. WILL CONTINUE TO MONITOR AND TREAT PER EMAR UNTIL HAND OFF TO DAY SHIFT RN.
[2018-12-30 12:12] LABS: BASOPHILS ABSOLUTE AUTO 0.03 K/mm3 (0.00-0.23); BASOPHILS PERCENT AUTO 1 % (0-2); EOSINOPHILS ABSOLUTE AUTO 0.21 K/mm3 (0.00-0.68); EOSINOPHILS PERCENT AUTO 4 % (0-6); Hematocrit 41.6 % (37.0-53.0); Hemoglobin 13.9 g/dL (13.5-17.5); IMMATURE GRAN ABSOLUTE AUTO 0.03 K/mm3 (0.00-0.10); IMMATURE GRAN PERCENT AUTO 1 % (0-1); LYMPHOCYTES ABSOLUTE AUTO 1.47 K/mm3 (0.84-5.20); LYMPHOCYTES PERCENT AUTO 25 % (21-46); MONOCYTES PERCENT AUTO 10 % (4-13); Mean Corpuscular HGB 30.3 pg (26.0-34.0); Mean Corpuscular HGB Conc 33.4 g/dL (31.5-36.5); Mean Corpuscular Volume 91 fL (80-100); Mean Platelet Volume 10.8 fL (9.1-12.4); NEUTROPHILS ABSOLUTE AUTO 3.63 K/mm3 (1.96-9.15); NEUTROPHILS PERCENT AUTO 61 % (41-73); Platelet Count 180 K/mm3 (150-400); RDW Coefficient Variation 13.3 % (11.7-14.2); RDW Standard Deviation 44.1 fL (35.1-46.3); Red Blood Cell Count 4.59 M/mm3 (4.30-5.90); White Blood Cell Count 5.97 K/mm3 (4.00-11.30)
[2018-12-30 12:26] LABS: Alanine Aminotransfer (ALT/SGP 61 U/L (12-78); Albumin, Blood 3.1 g/dL (3.4-5.0); Albumin/Globulin Ratio 0.9 (0.8-1.8); Alk Phos 86 U/L (50-136); Anion Gap 3 mmol/L (6-16); Aspartate Aminotrans (AST/SGOT 38 U/L (12-37); Bilirubin, Total 0.3 mg/dL (0.1-1.0); Blood Urea Nitrogen 37 mg/dL (8-24); Bun/Creatinine Ratio 39.1 (12.0-20.0); CO2, Blood 30 mmol/L (21-32); Calcium, Blood 9.3 mg/dL (8.5-10.1); Chloride, Blood 108 mmol/L (98-108); Creatinine, Blood 0.95 mg/dL (0.60-1.20); Globulin, Blood 3.3 g/dL (2.2-4.0); Glomerular Filtration Rate >60 (60-); Glucose, Blood 89 mg/dL (70-99); Potassium, Blood 3.6 mmol/L (3.5-5.5); Sodium, Blood 141 mmol/L (136-145); Total Protein, Blood 6.4 g/dL (6.4-8.2)
--- NOTE | 2018-12-30 18:03 | NUR ---
THE PT IS ALERT, ORIENTED TO SELF UNSURE OF THE PLACE, ORIENTED TO FAMILY, THE PT APPEARS TO BE BREATHING EASILY ON RA AT THIS TIME, TODAY THE PT WAS ASSISTED UP TO THE CHAIR FOR BREAKFAST WITHOUT ANY INCIDENT OF PSEUDOSEIZURE WHILE STANDING, HE WAS UP OFF AND ON FROM THE BED AND THE CHAIR T/O THE DAY, THE PT WALKED OUT INTO THE DUFF WITH THE PHYSICAL THERAPIST, THE PT WAS MEDICATED FOR PAIN X2 WITH TYLENOL TODAY, THE PAIN REPORTED TO BE IN HIS EYES, EARS AND BACK OF HIS HEAD, PT IS UP IN THE CHAIR FOR DINNER FAMILY IS AT THE BEDSIDE, CALL LIGHT IN REACH, BED ALARM AND CHAIR ALRMS IN USE
--- NOTE | 2018-12-31 07:45 | NUR ---
NOC SHIFT SUMMARY PT IS PLEASANT AND COOPERATIVE WITH CARE. DX ACUTE ENCEPHALOPATHY. WENT TO SLEEP EARLY LAST NIGHT AND LARGELY SLEPT THROUGH THE NIGHT. TREATED FOR HEADACHE PER EMAR. NO ACUTE CHANGES NOTED THIS NIGHT. REPORT TO ONCOMING RN.
--- NOTE | 2018-12-31 18:41 | NUR ---
SHIFT SUMMARY: NO ACUTE CHANGES TO REPORT THIS SHIFT. PT HX DEMENTIA, PTSD; ALERT; COOPERATIVE WITH CARE. DR LAW FOLLOWING. PT & OT CONTINUING; EXPECTED D/C HOME WITH FAMILY.
--- NOTE | 2019-01-01 07:34 | NUR ---
NOC SHIFT SUMMARY PT IS PLEASANT AND COOPERATIVE WITH CARE. CONFUSED AT TIMES. HE COMPLAINED OF HEADACHE EARLY IN THE EVENING AND WAS TREATED WITH TYLENOL PER EMAR. HE FELL TO SLEEP SHORTLY AFTER AND HAS SLEPT WELL THROUGHOUT THE NIGHT. NO FURTHER COMPLAINTS OF PAIN OR DISCOMFORT. PT COULD BE HEARD SNORING THROUGH MUCH OF THE NIGHT. VSS. APPEARS IN NO ACUTE DISTRESS. REPORT TO ONCOMING RN.
[2019-01-01] MEDS ORDERED: AMLO10 PO (15:04)
[2019-01-01] MEDS ORDERED: HYDCHL12.5 PO (15:05)
[2019-01-01] MEDS ORDERED: QUET100 PO (15:06)
[2019-01-01] MEDS ORDERED: ROPI.25 PO (15:06)
--- NOTE | 2019-01-01 17:39 | NUR ---
PATIENT DISCHARGE: PATIENT DISCHARGED TO HOME/ XFR TO HOME HEALTH THIS SHIFT. MEDICATION RECONCILIATION COMPLETED; MED LIST FAXED TO [facility]. DISCHARGE EDUCATION COMPLETED WITH PATIENT AND FAMILY. PATIENT TRANSPORTED TO EXIT BY [facility] STAFF WITH WHEELCHAIR AT 1715. PATIENT DEPARTED [facility] VIA PRIVATE AUTO.
[2019-01-01 20:06] LABS: DOPAMINE 110 (0-348); DOPAMINE, URINE 115 ug/L (Undefined); EPINEPHRINE 2 (0-19); NOREPINEPHRINE 32 (0-111)
[2019-01-05 06:08] LABS: CREATININE, URINE 96.5 mg/dL (Not Estab.)
== END 2019-01-01 17:17 | disposition home health service (06) | DRG 77 ==
LOC: ER 15:38 → MEDS 15:39 → ER 21:10 → MEDS 12-10 00:54 → ICUE 12-10 10:15 → PCU 12-10 14:08 → ICUE 12-10 14:08 → PCU 12-12 16:05 → MEDS 12-16 11:50
PROVIDERS: Emergency Medicine; Internal Medicine; Physician Assistant; ADMIT Internal Medicine
DX: I67.4 Hypertensive encephalopathy (principal); G92 Toxic encephalopathy; N39.0 Urinary tract infection, site not specified; R45.851 Suicidal ideations; I16.0 Hypertensive urgency; E86.0 Dehydration; F43.11 Post-traumatic stress disorder, acute; I10 Essential (primary) hypertension; G89.29 Other chronic pain; M54.9 Dorsalgia, unspecified; M54.2 Cervicalgia
CPT/HCPCS: 36415; 70450; 70496; 70498; 70551; 70553; 71045; 80048; 80053; 81001; 81050; 82024; 82384; 82533; 82570; 82607; 82947; 83497; 83605; 83735; 84145; 84146; 84484; 85025; 85027; 85610; 85651; 85730; 87086; 93005; 93010; 95819; 96365-59; 96372; 96375; 96375-59; 96376; 97110; 97116; 97162; 97164; 97167; 97530; 97535; 99285-25; A9270; A9577; C1751; G0378; J0360; J0696; J1630; J1650; J1953; J2060; J2310; J7030; J7050; Q2009; Q9967

== ENCOUNTER 2019-07-30 23:56 | Observation (INO) | payer OTHER, MEDICARE ==
[~2019-07-30] VITALS: Ht 182.9 cm; Wt 83.9 kg
[~2019-07-30 23:56] MED LIST changes: +AMLO10 PO; +CEPH500 PO; -CHOL10002 PO; +HYDCHL12.5 PO; +QUET100 PO; +ROPI.25 PO; +VITAMIN D32000 UNI3 PO
[2019-07-31 00:16] LABS: BASOPHILS ABSOLUTE AUTO 0.04 K/mm3 (0.00-0.23); BASOPHILS PERCENT AUTO 1 % (0-2); EOSINOPHILS ABSOLUTE AUTO 0.34 K/mm3 (0.00-0.68); EOSINOPHILS PERCENT AUTO 5 % (0-6); Hematocrit 45.1 % (37.0-53.0); Hemoglobin 15.3 g/dL (13.5-17.5); IMMATURE GRAN ABSOLUTE AUTO 0.01 K/mm3 (0.00-0.10); IMMATURE GRAN PERCENT AUTO 0 % (0-1); LYMPHOCYTES ABSOLUTE AUTO 2.28 K/mm3 (0.84-5.20); LYMPHOCYTES PERCENT AUTO 36 % (21-46); MONOCYTES ABSOLUTE AUTO 0.58 K/mm3 (0.16-1.47); MONOCYTES PERCENT AUTO 9 % (4-13); Mean Corpuscular HGB 30.7 pg (26.0-34.0); Mean Corpuscular HGB Conc 33.9 g/dL (31.5-36.5); Mean Corpuscular Volume 91 fL (80-100); Mean Platelet Volume 11.2 fL (9.1-12.4); NEUTROPHILS PERCENT AUTO 49 % (41-73); Platelet Count 152 K/mm3 (150-400); RDW Coefficient Variation 13.6 % (11.7-14.2); RDW Standard Deviation 45.9 fL (35.1-46.3); Red Blood Cell Count 4.98 M/mm3 (4.30-5.90); White Blood Cell Count 6.35 K/mm3 (4.00-11.30)
[2019-07-31 00:32] LABS: International Normalized Ratio 1.02; Prothrombin Time Results 10.9 Sec (9.7-11.5)
[2019-07-31 00:35] LABS: Alanine Aminotransfer (ALT/SGP 21 U/L (12-78); Albumin, Blood 3.5 g/dL (3.4-5.0); Alk Phos 107 U/L (50-136); Anion Gap 7 mmol/L (6-16); Aspartate Aminotrans (AST/SGOT 26 U/L (12-37); Bilirubin, Total 0.7 mg/dL (0.1-1.0); Blood Urea Nitrogen 23 mg/dL (8-24); Bun/Creatinine Ratio 22.8 (12.0-20.0); CO2, Blood 24 mmol/L (21-32); Calcium, Blood 8.8 mg/dL (8.5-10.1); Chloride, Blood 111 mmol/L (98-108); Creatinine, Blood 1.01 mg/dL (0.60-1.20); Globulin, Blood 3.4 g/dL (2.2-4.0); Glomerular Filtration Rate >60 (60-); Glucose, Blood 109 mg/dL (70-99); Potassium, Blood 4.1 mmol/L (3.5-5.5); Sodium, Blood 142 mmol/L (136-145); Total Protein, Blood 6.9 g/dL (6.4-8.2)
[2019-07-31] MEDS ORDERED: CYCLOBENZAPRINE5 MG PO (03:48)
[2019-07-31] MEDS ORDERED: THERA1 EACH PO (03:54)
[2019-07-31] MEDS ORDERED: Glucosamine Co1 EAC1 PO (03:55)
[2019-07-31] MEDS ORDERED: AZO CRANBERRY1 EAC1 PO (03:55)
[2019-07-31] MEDS ORDERED: VIT1CAPS12 (03:55)
[2019-07-31] MEDS ORDERED: METAMUCIL POWD575 GM PO (03:56)
[2019-07-31] MEDS ORDERED: PROBIOTIC1 EAC4 PO (03:56)
[2019-07-31] MEDS ORDERED: Salmon Oil 1,01 EACH PO (03:57)
[2019-07-31] MEDS ORDERED: COGNIUM PO (03:57)
[2019-07-31] MEDS ORDERED: MELA3 PO (03:58)
[2019-07-31] MEDS ORDERED: NAPR500 PO (03:58)
[2019-07-31] MEDS ORDERED: [UNRECOGNIZED DRUG - OTHER] PO (04:00)
--- NOTE | 2019-07-31 06:32 | NUR ---
79 YR OLD MALE ADMITTED TO THE FLOOR FROM THE ED WITH DX OF ENCEPHALOPATHY. ED REPORTED PT WAS FOUND IN BATHROOM AT HOME AFTER HE HAD PHONE CALL THAT HIS SISTER HAD . SOMEWHAT CATATONIC WHEN HE ARRIVED ON THE FLOOR. DAUGHTER ACCOMPANIED HIM AND ANSWERED ALL QUESTIONS PT DID NOT RESPOND TO QUESTIONS AND WOULD MOAN AND SHAKE FISTS WITHOUT MOVING MUCH OF ANYTHING ELSE. RAILS UP X 3. BED ALARM ON. CALL LIGHT IN REACH. ORAL CARE GIVEN. DAUGHTER STATED THIS IS HOW HE REACTS TO STRESS. HE HAS DONE SEVERAL TIMES IN THE PAST. HE HAS HX OF PSEUDOSEIZURES. DOES NOT ANSWER QUESTIONS, NON RECEPTIVE TO ASSESSMENT OF NEURO RESPONSES. WILL MONITOR.
--- NOTE | 2019-07-31 07:30 | NUR ---
PT. LYING WITH EYES WIDE OPEN BUE RIGID AND CONTRACTED. ASKS " WHERE AM I?" EXPLAINED HE WAS IN [facility] DUE TO A FALL. PT. THEN BECAME UNRESPONSIVE AGAIN. UNABLE TO PERFORM NEURO CHECKS. BUE RESISTANT TO MOVEMENT, BABINSKI SIGN NEGATIVE HEAD EXTENDED BACKWARD BUT CAN LIFT HEAD.
--- NOTE | 2019-07-31 08:27 | NUR ---
PT. BLOOD PRESSURE IS 212/89, WILL NOTIFY DR. FLORES AND GIVE IV APRESOLINE.
--- NOTE | 2019-07-31 11:50 | NUR ---
PT. STIFF AND SHAKING AGAIN, FISTS CLENCHED. DOES NOT RESPOND TO QUESTIONS. ABOUT 5 MINUTES BEFORE PT. WAS ALERT AND TALKING WAS ABLE TO GIVE HIS NAME AND HAVING A CONVERSATION WITH HIS SON. WILL NOTIFY DR. FLORES.
--- NOTE | 2019-07-31 11:53 | NUR ---
PT. GIVEN .5 MG OF IV ATIVAN. CONTINUOUS BIOX HOOKED UP AND HIS OXYGENATION IS IN THE 90'S.
--- NOTE | 2019-07-31 12:38 | NUR ---
PT. STILL MAKENZIE AND MOANING SO IMG IV ATIVAN GIVEN TO RELAX PT.
--- NOTE | 2019-07-31 18:49 | NUR ---
PT. SITTING UP IN BED ATE ALL OF HIS DINNER. PT. HAS BEEN A&O SINCE ABOUT A HALF HOUR AFTER THE 1 MG OF ATIVAN GIVEN. PT. WILL BE HAVING A TELE-PSYCH CONSULT AT 1900. PT. AGREEABLE TO CONSULT.
--- NOTE | 2019-07-31 19:51 | NUR ---
Teary eyed during shift change report. previous shift reported pt having suicidal ideations and possible plan. Nurse spoke to pt with empathy, emphasizing his importance and pt smiled and said "we need more guys like you..." Verbal response appropriate to questions asked. Room assessed for sharps. Will be transferred to room with video survelience and safer environemnt. Will continue to monitor.
--- NOTE | 2019-07-31 23:49 | NUR ---
THEY ATTEMPTED A TELESPYCH VIDEO CONSULT AT 1800, THE CONNECTION WAS NOT STABLE ENOUGH TO DO THE CONSULT. I HAVE SINCE TRANSFERRED THE PT TO ROOM 346 AND THE CAMERA IS ON IN THAT ROOM. SANDRO RIVERA SPOKE WITH AND ASSESSED THE PT AND ESTABLISHED THAT HE IS MODERATE SI PRECAUTIONS UNTIL TELE PSYCH CONSULT DONE TO SEE IF THAT NEEDS TO BE CHANGED. I HAVE ATTEMPTED TO CALL TELE PSYCH TO RESCHEDULE THE CONSULT. THE FIRST NUMBER THAT WE HAVE DOWN IN OUR TELE PSYCH BOOK WAS BUSY CONSTANTLY. I CALLED ER AND GOT A SECOND NUMBER TO CALL. NO ONE ANSWERED, I LEFT A MESSAGE ABOUT 2200. NO ONE CALLED BACK, SO I CALLED THEM BACK AGAIN AT 2255, I FINALLY GOT SOMEONE ON THE PHONE, THEY PUT ME ON HOLD TO SEE IF A CERTAIN DOCTOR HAD A TIME AVAILABLE. I WAS ON HOLD FOR 30 MINUTES. I ENDED THE CALL AND ATTEMPTED TO SET A TIME MYSELF VIA THE COMPUTER. I SET A TIME FOR 0000 08/01/19. WE SHALL SEE IF IT WORKS.
--- NOTE | 2019-08-01 01:41 | NUR ---
SO THE APPOINTMENT FOR 0000 DID NOT WORK. SO I CALLED TELEPSYCH BACK AND THEY MADE AN APPOINTMENT FOR 0115. HOWEVER, IT IS NOW [address] STILL HAS NOT COME ONLINE TO SPEAK WITH THE PATIENT. TELE PSYCH HAS BEEN TRYING TO GET AHOLD OF THE DR. WILL KEEP TRYING.
--- NOTE | 2019-08-01 02:08 | NUR ---
TELEPSYCH WAS STILL UNABLE TO GET AHOLD OF THE DR FOR THE CONSULT. PER THE NURSING SUBSTANCE ABUSE CLINICIAN BRENNAN CHAMBERS, WE ARE CONCERNED ABOUT THIS PATIENT HAVING MORE STRESS WITH NOT BEING ABLE TO SLEEP FROM WAITING FOR THIS CONSULT TO HAPPEN. WE ARE RESCHEDULING THE CONSULT FOR THE AM SO THAT THE PATIENT CAN GET SOME REST HE IS NOT IN IMMINENT DANGER AT THIS TIME. THE AM CONSULT IS SCHEDULED FOR [address] BLEVINS.
--- NOTE | 2019-08-01 05:13 | NUR ---
SHIFT SUMMARY PT XFER'D TO ROOM THIS SHIFT FOR SI WATCH, HAS BEEN A&O, PLEASANT & COOPERATIVE W/CARE, MEDICATED 1X FOR HEADACHE, NO OTHER C/O ANY KIND, PT SLEEPING AT THIS TIME, ALARM IN PLACE, WILL CONT TO MONITOR UNTIL REPORT GIVEN TO DAY RN.
--- NOTE | 2019-08-01 09:23 | NUR ---
07/31/191844 i was setting up the [employer] computer in pt's room and we started talking about the interview and the will be one the computer screen then i talked about his family and had he been depressed or suicidial now or in the past. he started talking about that he had thought about killing his self before and this week . the first situation was after his had passed three years ago and most resent was this week after his sister passed.. the [employer]-computer would not work properly and and we had to reschedule appointment.
[2019-08-01] MEDS ORDERED: Ativan1 MG PO (11:57)
--- NOTE | 2019-08-01 14:00 | NUR ---
AMBULATING TO HALLWAY THIS MORNING USING A GAIT BELT. UNSTEADY ON FEET. ABLE TO WALK APPROX 40 FEET BUT STRUGGLED TO GET ALL THE WAY TO THE CHAIR NEAR THE END. DISCHARGE INSTRUCTIONS COMPLETED AND DISCUSSED WITH DAUGHTER AND THEN PT. DID HAVE TELE PYSCH CONSULT THIS MORNING. SCRIPT SENT HOME WITH PAPERWORK. TO [facility] VIA W/C. ABLE TO TRANSFER TO VEHICLE WITH MINIAL ASSIST.
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
== END 2019-08-01 13:49 | disposition home or self-care (01) ==
LOC: ER 23:56 → MEDS 23:57
PROVIDERS: Emergency Medicine; ADMIT Internal Medicine
DX: G93.40 Encephalopathy, unspecified (principal); F06.1 Catatonic disorder due to known physiological condition; I10 Essential (primary) hypertension; F43.10 Post-traumatic stress disorder, unspecified; R45.851 Suicidal ideations; R53.1 Weakness; Z87.891 Personal history of nicotine dependence; Z88.2 Allergy status to sulfonamides; Z88.8 Allergy status to other drugs, medicaments and biological substances
CPT/HCPCS: 36415; 70450; 80053; 85025; 85610; 93005; 93010; 96372; 96374; 96375; 96376; 99285-25; A9270; A9270-GY; G0378; J0360; J1644; J2060; J3360

== ENCOUNTER 2022-03-25 16:41 | Emergency (ER) | payer OTHER, MEDICARE ==
[~2022-03-25] VITALS: Ht 177.8 cm; Wt 78.0 kg
[~2022-03-25 16:41] MED LIST changes: +AZO CRANBERRY1 EAC1 PO; +Ativan1 MG PO; +Ativan1 MG SL; +COGNIUM PO; +CYCLOBENZAPRINE5 MG PO; +Glucosamine Co1 EAC1 PO; +MELA3 PO; +METAMUCIL POWD575 GM PO; +NAPR500 PO; +PROBIOTIC1 EAC4 PO; +THERA1 EACH PO; +VIT1CAPS12; +[UNRECOGNIZED DRUG - OTHER] PO
[2022-04-02] MEDS ORDERED: CEFD300 PO (20:07)
== END 2022-03-25 21:37 | disposition home or self-care (01) ==
LOC: ER 16:41
DX: K40.90 Unilateral inguinal hernia, without obstruction or gangrene, not specified as recurrent (principal); I10 Essential (primary) hypertension; Z79.899 Other long term (current) drug therapy; Z88.8 Allergy status to other drugs, medicaments and biological substances; Z88.2 Allergy status to sulfonamides; Z96.653 Presence of artificial knee joint, bilateral; Z87.891 Personal history of nicotine dependence
CPT/HCPCS: 99283

== ENCOUNTER 2023-01-16 12:39 | Emergency (ER) | payer OTHER ==
[~2023-01-16] VITALS: Ht 182.9 cm; Wt 77.1 kg
[~2023-01-16 12:39] MED LIST changes: +CEFD300 PO
[2023-01-16 14:55] LABS: BASOPHILS ABSOLUTE AUTO 0.04 K/mm3 (0.00-0.23); BASOPHILS PERCENT AUTO 1 % (0-2); EOSINOPHILS ABSOLUTE AUTO 0.21 K/mm3 (0.00-0.68); EOSINOPHILS PERCENT AUTO 4 % (0-6); Hematocrit 40.4 % (37.0-53.0); Hemoglobin 13.3 g/dL (13.5-17.5); IMMATURE GRAN ABSOLUTE AUTO 0.01 K/mm3 (0.00-0.10); IMMATURE GRAN PERCENT AUTO 0 % (0-1); LYMPHOCYTES ABSOLUTE AUTO 1.17 K/mm3 (0.84-5.20); LYMPHOCYTES PERCENT AUTO 20 % (21-46); MONOCYTES ABSOLUTE AUTO 0.46 K/mm3 (0.16-1.47); MONOCYTES PERCENT AUTO 8 % (4-13); Mean Corpuscular HGB 30.5 pg (26.0-34.0); Mean Corpuscular HGB Conc 32.9 g/dL (31.5-36.5); Mean Corpuscular Volume 93 fL (80-100); Mean Platelet Volume 11.5 fL (9.1-12.4); NEUTROPHILS ABSOLUTE AUTO 3.95 K/mm3 (1.96-9.15); NEUTROPHILS PERCENT AUTO 68 % (41-73); Platelet Count 144 K/mm3 (150-400); RDW Coefficient Variation 14.4 % (11.7-14.2); RDW Standard Deviation 48.3 fL (35.1-46.3); Red Blood Cell Count 4.36 M/mm3 (4.30-5.90); White Blood Cell Count 5.84 K/mm3 (4.00-11.30)
[2023-01-16 15:07] VITALS: BP 161/68
[2023-01-16 15:26] LABS: Alanine Aminotransfer (ALT/SGP 22 U/L (12-78); Albumin, Blood 3.2 g/dL (3.4-5.0); Albumin/Globulin Ratio 0.9 (0.8-1.8); Alk Phos 72 U/L (50-136); Anion Gap 7 mmol/L (6-16); Aspartate Aminotrans (AST/SGOT 45 U/L (12-37); Bilirubin, Direct <0.1 mg/dL (0.0-0.3); Bilirubin, Indirect Unable to Calculate mg/dL (0.1-0.7); Bilirubin, Total 0.6 mg/dL (0.1-1.0); Blood Urea Nitrogen 30 mg/dL (8-24); Bun/Creatinine Ratio 27.8 (12.0-20.0); CO2, Blood 21 mmol/L (21-32); Calcium, Blood 9.4 mg/dL (8.5-10.1); Chloride, Blood 112 mmol/L (98-108); Creatinine, Blood 1.08 mg/dL (0.60-1.20); Globulin, Blood 3.6 g/dL (2.2-4.0); Glomerular Filtration Rate 67 (60-); Glucose, Blood 105 mg/dL (70-99); Potassium, Blood 4.9 mmol/L (3.5-5.5); Sodium, Blood 140 mmol/L (136-145); Total Protein, Blood 6.8 g/dL (6.4-8.2)
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
== END 2023-01-16 15:51 | disposition home or self-care (01) ==
LOC: ER 12:39 → MRI 12:39 → EDSTATUS 13:00 → ER 15:51
PROVIDERS: Student in an Organized Health Care Education/Training Program
DX: F43.10 Post-traumatic stress disorder, unspecified (principal); R45.1 Restlessness and agitation; F16.983 Hallucinogen use, unspecified with hallucinogen persisting perception disorder (flashbacks); Z88.8 Allergy status to other drugs, medicaments and biological substances; Z88.2 Allergy status to sulfonamides; Z79.899 Other long term (current) drug therapy; I10 Essential (primary) hypertension; Z87.891 Personal history of nicotine dependence
CPT/HCPCS: 80048; 80076; 85025; J1790

== ENCOUNTER 2024-05-20 16:18 | Emergency (ER) | payer MEDICARE ==
[~2024-05-20] VITALS: Ht 177.8 cm; Wt 79.4 kg
[~2024-05-20 16:18] MED LIST changes: +ATOR20 PO
[2024-05-20] MEDS ORDERED: Haloperidol Lactate Inj. 5 MG/ML Injection ONE (16:21)
[2024-05-20 17:43] LABS: BASOPHILS ABSOLUTE AUTO 0.01 K/mm3 (0.00-0.23); BASOPHILS PERCENT AUTO 0 % (0-2); EOSINOPHILS ABSOLUTE AUTO 0.06 K/mm3 (0.00-0.68); EOSINOPHILS PERCENT AUTO 1 % (0-6); Hematocrit 36.7 % (37.0-53.0); Hemoglobin 12.8 g/dL (13.5-17.5); IMMATURE GRAN ABSOLUTE AUTO 0.01 K/mm3 (0.00-0.10); IMMATURE GRAN PERCENT AUTO 0 % (0-1); LYMPHOCYTES ABSOLUTE AUTO 0.79 K/mm3 (0.84-5.20); LYMPHOCYTES PERCENT AUTO 14 % (21-46); MONOCYTES ABSOLUTE AUTO 0.46 K/mm3 (0.16-1.47); MONOCYTES PERCENT AUTO 8 % (4-13); Mean Corpuscular HGB 31.6 pg (26.0-34.0); Mean Corpuscular HGB Conc 34.9 g/dL (31.5-36.5); Mean Corpuscular Volume 91 fL (80-100); Mean Platelet Volume 10.7 fL (9.1-12.4); NEUTROPHILS ABSOLUTE AUTO 4.16 K/mm3 (1.96-9.15); NEUTROPHILS PERCENT AUTO 76 % (41-73); Platelet Count 111 K/mm3 (150-400); RDW Coefficient Variation 13.6 % (11.7-14.2); RDW Standard Deviation 45.4 fL (35.1-46.3); Red Blood Cell Count 4.05 M/mm3 (4.30-5.90); White Blood Cell Count 5.49 K/mm3 (4.00-11.30)
[2024-05-20 17:50] LABS: Source, Urine Straight Cath
[2024-05-20 17:58] LABS: Appearance, Urine Hazy (Clear); Bilirubin, Urine Neg (Neg); Blood, Urine 2+ (Neg); Color, Urine Yellow (P-Yellow); Glucose Qualitative, Urine Neg (Neg); Ketones, Urine Neg (Neg); Leukocyte Esterase, Urine 3+ (Neg); Nitrite, Urine Neg (Neg); Protein, Urine 2+ (Neg); Urobilinogen, Urine NORM (Normal); pH, Urine 6.5 (5.0-8.0)
[2024-05-20 18:10] LABS: U Amphetamine Screen Not Detected; U Barbituate Screen Not Detected; U Benzodiazapine Screen Not Detected; U Buprenorphine Screen Not Detected; U Cannabinoids Screen Not Detected; U Cocaine Screen Not Detected; U Methadone Screen Not Detected; U Methamphetamine Screen Not Detected; U Opiates Screen Not Detected; U Oxycodone Screen Not Detected; U Phencyclidine Screen Not Detected
[2024-05-20 18:11] LABS: White Blood Cells, Urine 50-100 /hpf (0-5)
[2024-05-20 18:12] LABS: Bacteria Few /hpf; Squamous Epithelial Cells Few /hpf (Few)
[2024-05-20 18:12] LABS: Ethanol (Alcohol), Blood, Med <3 mg/dL; Salicylate <1.7 mg/dL (2.8-20.0)
[2024-05-20 18:15] LABS: Acetaminophen, Random 6.9 ug/mL (10.0-30.0); Alanine Aminotransfer (ALT/SGP 27 U/L (12-78); Albumin, Blood 3.4 g/dL (3.4-5.0); Albumin/Globulin Ratio 1.2 (0.8-1.8); Alk Phos 79 U/L (50-136); Anion Gap 8 mmol/L (3-11); Aspartate Aminotrans (AST/SGOT 28 U/L (12-37); Bilirubin, Total 0.9 mg/dL (0.1-1.0); Blood Urea Nitrogen 30 mg/dL (8-24); Bun/Creatinine Ratio 27.8 (12.0-20.0); CO2, Blood 24 mmol/L (21-32); Calcium, Blood 9.7 mg/dL (8.5-10.1); Chloride, Blood 111 mmol/L (98-108); Creatinine, Blood 1.08 mg/dL (0.60-1.20); Globulin, Blood 2.8 g/dL (2.2-4.0); Glomerular Filtration Rate 67 (60-); Glucose, Blood 136 mg/dL (70-99); Potassium, Blood 4.4 mmol/L (3.5-5.5); Sodium, Blood 139 mmol/L (136-145); Total Protein, Blood 6.2 g/dL (6.4-8.2)
[2024-05-20] MEDS ORDERED: CefTRIAXone Sodium 2,000 MG in NS 100 ML IV ONE (18:20)
[2024-05-20] MEDS ORDERED: CEPH500 PO (20:34)
[2024-05-20 21:00] VITALS: BP 146/96
== END 2024-05-20 21:01 | disposition home or self-care (01) ==
LOC: ER 16:18
PROVIDERS: Student in an Organized Health Care Education/Training Program
DX: N39.0 Urinary tract infection, site not specified (principal); R41.82 Altered mental status, unspecified; K59.00 Constipation, unspecified; F43.10 Post-traumatic stress disorder, unspecified; I10 Essential (primary) hypertension; Z87.891 Personal history of nicotine dependence; Z79.899 Other long term (current) drug therapy; Z79.82 Long term (current) use of aspirin; Z88.8 Allergy status to other drugs, medicaments and biological substances; Z88.2 Allergy status to sulfonamides
CPT/HCPCS: 74177; 80053; 80320; 81001; 85025; 87086; 93005; 93010; 96365-59; 96372-59; 99285-25; G0480; J0696; J1630; Q9967